=== PATIENT | male | born 1965 | race Caucasian/White ===

== ENCOUNTER → 2020-10-03 17:42 | Outpatient (CLI) | payer OTHER, SELFPAY | PROVIDERS: Visit Provider Family Medicine | DX: U07.1 COVID-19 (principal) | CPT/HCPCS: 87635; U0003 ==

== ENCOUNTER 2022-01-21 16:12 | Outpatient (CLI) | payer OTHER, SELFPAY ==
--- NOTE | 2022-01-21 16:17 | RAD_ITS ---
STUDY: XR Chest 2 Views 01/21/2022 4:21 PM REASON FOR EXAM: Male, 56 years old. CHEST PAIN LEG SWELLING COMPARISON: None TECHNIQUE: XR Chest 2 Views FINDINGS: There is no demonstrated pleural abnormality. Normal heart size. Normal mediastinum. Normal mal. Prominent appearing increased interstitial lung markings. Normal visualized pulmonary arteries. There is atherosclerotic calcification of the aortic arch with tortuosity. There are diffuse degenerative changes of the visualized thoracic spine. There is degenerative osteoarthritis of the bilateral shoulders. There is no demonstrated abnormality of the visualized soft tissue structures of the upper abdomen. RAD/Chest PA and Lateral IMPRESSION: There are no acute findings. Electronically Signed: Christopher Robledo MD at 19:34 EDT ,
[2022-01-21 17:58] LABS: Hemoglobin 13.9 g/dL (13.0-16.5); Mean Corp Hgb Conc 32.3 g/dL (32-36); Mean Corpuscular Hgb 29.9 pg (27.0-32.0); Mean Corpuscular Volume 92.5 fL (80-94); Mean Platelet Vol. 10.8 fl (6.2-12.0); Platelet Count 233 K/mm3 (150-450); RBC Distribution Width CV 14.2 % (11.6-14.6); RBC Distribution Width SD 48.2 fl (35.1-43.9); Red Blood Count 4.65 M/mm3 (4.6-6.2); White Blood Count 7.4 K/mm3 (4.4-11.0)
[2022-01-21 18:30] LABS: BNP,B-Type NATRIURETIC PEPTIDE 46.1 pg/mL (0-100)
[2022-01-21 18:32] LABS: ALB/GLOB Ratio 1.1 RATIO (0.9-2.4); AST(SGOT) 23 U/L (15-37); Alanine Aminotransfer ALT/SGPT 36 U/L (16-61); Albumin, Serum 3.8 g/dL (3.2-5.0); Alkaline Phosphatase 107 U/L (45-117); Anion Gap 5 (5-15); BUN 18 mg/dL (7-18); BUN/Creat Ratio 18.3 RATIO (10-20); Calcium,Total 8.9 mg/dL (8.5-10.1); Chloride 106 mmol/L (98-107); Cholesterol 169 mg/dL (200); Creatinine, Serum 0.98 mg/dL (0.70-1.30); EST Glomerular Filtration Rate 84 mL/min (>60); Est Glom Filt Rate - Afr Amer 102 mL/min (>60); Globulin 3.6 g/dL (2.2-4.2); Glucose 89 mg/dL (74-106); High Density Lipoprotein 47 mg/dL; Potassium 3.7 mmol/L (3.5-5.1); Protein, Total 7.4 g/dL (6.4-8.2); Sodium Level 138 mmol/L (136-145)
== END 2022-01-21 23:59 | disposition home or self-care (01) ==
LOC: MTLAB 16:15
PROVIDERS: PCP Family Medicine; Referring Provider Family Medicine; Visit Provider Family Medicine
DX: M79.89 Other specified soft tissue disorders (principal)
CPT/HCPCS: 36415; 71046; 80053; 82465; 83718; 83880; 85027

== ENCOUNTER 2022-02-13 15:30 | Outpatient (RCR) | payer OTHER, SELFPAY ==
--- NOTE | 2022-02-06 07:51 | HP.OTEVAL ---
Patient's Visit Information YENY SUAZO is a 56 year old M, referred to Occupational Therapy by Dr. Daryl Carroll MD, with a diagnosis of lymphedema left LE, PVD/Varicose veins bilateral. Date of Evaluation: 02/05/22 Occupational Therapist: Ivonne Xie, OTR/L, CHT - Subjective This 56 year old male was seen for OT eval with dx of left LE lymphedema- pt states he noticed the swelling possibly in 2020. pt states Dr. Carroll did put him on a water pill about two weeks ago- pt states his leg is better-. Pt states he does work at a [employer] work 8-9 hours a day- sitting most of the time. pt states he feels swelling is constant and does not change. pt states his is concerned and he really did not notice it until she said something. - Lymphedema (Circumferential Measure) Mid-foot: right 24cm left 24cm Ankle: right 25.5 cm left 27cm Lower calf: right 27 left 33 Largest calf: right 46cm left 48cm Below knee: right 39 left 40 cm Above knee: rigth 48 left 47 cm - Lower Limb Functional Index Lower Extremity Functional Score: 69 - Goals Demonstrate a 20% reduction in edema by d/c: Yes Demonstrate adequate knowledge of self-massage by 2nd week: Yes Demonstrate adequate knowledge skin care/prec by 2nd week: Yes Demonstrate adequate knowledge therapeutic exercises by d/c: Yes Select approp compression garment w/donning/care/wear by d/c: Yes Voice need to replace compression garment every 4-6mo by dc: Yes - Rehabilitation General Assessment: Pt demo with left LE edema and multiple varicose veins. Pt demo need for OT services to ed. pt on life long mtg. of lymphedema. This will include pts learning self manual lymph massage so he can perform 3-4x a day, lymph stim exercise to stimulator lymph fluid circulation. Ed. pt on compression garment use and skin care for pt to be successful with self management of lymphedema. Today therapist ed. pt on need of compression garment 20-30mmHg. Self lymph massage, lymph stim exercise and skin care. pt demo understanding and agree to POC. Rehabilitation Potential: Fair - Anticipated Interventions Education re assistive Equipment, Education re Diagnosis, Manual Lymph Drainage, Education re Life-long lymphedema Management, Education re Skin Care and Precautions, Education re Self Massage Techniques, Education re Correct Donning Tech,Care&Wearing Sched Comp Garments, Home Program - Visit Plan Frequency: 1-2x /Week Duration: 4 Weeks TEXT: Thank you for the opportunity to evaluate your patient. For Medicare and Medicare HMO plans, please review the plan of care and approve it. It will need to be FAXED BACK to us at [phone] for Medicare purposes. Please let me know if there are questions or concerns regarding this plan of care. Physician Signature: Date:
--- NOTE | 2022-07-22 13:30 | HP.OT.NRP ---
YENY SUAZO was seen in my office for initial evaluation on 02/05/22. The following Plan of Care was established for this patient: Initial Frequency: 1-2x /Week Initial Duration: 4 Weeks Anticipated Interventions: Education re assistive Equipment, Education re Diagnosis, Manual Lymph Drainage, Education re Life-long lymphedema Management, Education re Skin Care and Precautions, Education re Self Massage Techniques, Education re Correct Donning Tech,Care&Wearing Sched Comp Garments, Home Program This patient was last seen in our office 02/05/22. Pertinent comments regarding their Occupational therapy will appear below: pt was seen for 2 visits- he arrived to 2nd visit with compression socks and felt they were comfortable- pt demo understanding of HEP- pt has not scheduled further apts. due to time lapse in services pt d.c At this point I will be discontinuing this patient from occupational therapy. I would be happy to see this patient again in the future if found appropriate by the physician. Thank you! Ivonne Xie, OTR/L, CHT
== END 2022-02-13 19:00 | disposition home or self-care (01) ==
LOC: OT 15:30
PROVIDERS: PCP Family Medicine; Referring Provider Family Medicine; Visit Provider Family Medicine
DX: I89.0 Lymphedema, not elsewhere classified (principal); I83.93 Asymptomatic varicose veins of bilateral lower extremities; I73.9 Peripheral vascular disease, unspecified
CPT/HCPCS: 97110; 97166; 97530

== ENCOUNTER → 2022-05-01 | Outpatient (CLI) | payer OTHER, SELFPAY ==
[2022-05-01 17:55] LABS: PSA,Total - Annual Screen 7.29 ng/mL (0.00-4.00)
== END | disposition home or self-care (01) ==
LOC: MTLAB 16:23
PROVIDERS: PCP Family Medicine; Referring Provider Family Medicine; Visit Provider Family Medicine
DX: Z12.5 Encounter for screening for malignant neoplasm of prostate (principal)
CPT/HCPCS: 36415; 84153; G0103

== ENCOUNTER → 2022-06-17 | Outpatient (CLI) | payer OTHER, SELFPAY ==
[2022-06-17 14:48] LABS: PSA,Total- Diagnostic 8.32 ng/mL (0.0-4.0)
== END | disposition home or self-care (01) ==
LOC: LAB 13:53
PROVIDERS: PCP Family Medicine; Visit Provider Urology
DX: R97.20 Elevated prostate specific antigen [PSA] (principal)
CPT/HCPCS: 36415; 84153

== ENCOUNTER → 2022-06-26 | Outpatient (CLI) | payer OTHER, SELFPAY ==
--- NOTE | 2022-06-26 | IMM_PTH ---
PATIENT: YENY SUAZO LOC: [facility] U#:[id number] AGE/SX: 56/M ROOM: RE06/26/[address]: Dr. Ramírez Ndiaye MD : 1965 BED: DIS: 06/26/2022 SPEC #: [id number] RECD: 06/30/22 13:43 STATUS: JOAN REQ #: [id number] MIKE: 06/26/22 00:[address]: Ramírez Ndiaye DEPT: IMMUNOHISTOCHEMISTRY RECD BY: Lary Diallo ENTERED: 06/30/22 13:44 SP TYPE: IMMUNO OTHR DR: Dr. Isaac Birch MD Tissues: A - PROSTATE RIGHT D - PROSTATE LEFT Procedures: 34BE12 (add) P40 (add) 34BE12 (initial) PHYSICIAN & INSTITUTION [place] [phone] SPECIMEN INFORMATION: Tissue Source: A - Right prostate, apex, core biopsy, D - Left prostate, apex, core biopsy Clinical Info: Elevated PSA Specimen Number: [id number] A & D CPT code: 21407, 21492 x3 METHODOLOGY: Deparaffinized sections of prefer/formalin-fixed tissue or PAP/DQ stained slides are incubated with monoclonal/polyclonal antibodies/oligonucleotide probes. Localization is made via biotin free immunoperoxidase method. Appropriate controls are performed and reacted as expected. Results on target cell population are indicated in the following table: RESULTS: ANTIBODY / CLONE RESULT Block A P40 (BC28) negative (a few glands) * 34BE12 (34BE12) negative (a few glands) * Block D P40 (BC28) positive 34BE12 (34BE12) positive *?Positive in the area of high-grade prostatic intraepithelial neoplasia (HGPIN). These tests were developed and their performance characteristics determined by [facility]. They may not have been cleared or approved by the U.S. Food and Drug Administration. The FDA has determined that such clearance or approval is not necessary. The above immunohistochemical/dualISH markers are ordered and reviewed by the Pathologist. INTERPRETATION: A. Right prostate, apex, core biopsy: Focal atypical small acinar proliferation (AMILCAR). Focal high-grade prostatic intraepithelial neoplasia (HGPIN). D. Left prostate, apex, core biopsy: Focal high-grade prostatic intraepithelial neoplasia (HGPIN). SJ:sky 07/01/2022
--- NOTE | 2022-06-26 08:00 | PROSBIL_PTH ---
PATIENT: YENY SUAZO LOC: [facility] U#:[id number] AGE/SX: 56/M ROOM: RE06/26/[address]: Dr. Ramírez Ndiaye MD : 1965 BED: DIS: 06/26/2022 SPEC #: [id number] RECD: 06/26/22 16:27 STATUS: JOAN REJose #: [id number] MIKE: 06/26/22 08:[address]: Ramírez Ndiaye DEPT: SURGICAL PATHOLOGY RECD BY: Tova Ortega ENTERED: 06/27/22 08:12 SP TYPE: PROST BX SHY DR: Dr. Isaac Birch MD Tissues: A - PROSTATE RIGHT B - PROSTATE RIGHT C - PROSTATE RIGHT D - PROSTATE LEFT E - PROSTATE LEFT F - PROSTATE LEFT Procedures: PROSTATE BX HEADER OPERATION: Prostate biopsy PRE-OP DIAGNOSIS: Elevated PSA R97.20 TISSUE SUBMITTED: A - Right apex, B - Right mid, C - Right base, D - Left apex, E - Left mid, F - Left base MICROSCOPIC DIAGNOSIS A. Right prostate, apex, core biopsy: Focal high-grade prostatic intraepithelial neoplasia (HGPIN). Focal atypical small acinar proliferation (AMILCAR). See comment. B. Right prostate, mid, core biopsy: Prostatic tissue, negative for malignancy. Focal mild chronic inflammation. C. Right prostate, base, core biopsy: Prostatic tissue, negative for malignancy. D. Left prostate, apex, core biopsy: Focal high-grade prostatic intraepithelial neoplasia (HGPIN). See comment. E. Left prostate, mid, core biopsy: Prostatic adenocarcinoma. [place] grade: 3+3=6 Number of cores involved: 1/2 Proportion of tissue involved: ~10% Perineural invasion: Not identified. Greatest tumor length: 0.5 cm, discontinuous Focal high-grade prostatic intraepithelial neoplasia (HGPIN). F. Left prostate, base, core biopsy: Prostatic adenocarcinoma. [place] grade: 3+3=6 Number of cores involved: 1/2 Proportion of tissue involved: ~25% Perineural invasion: Present, focal. Greatest tumor length: 0.5 cm. Focal high-grade prostatic intraepithelial neoplasia (HGPIN). SJ:sky 06/30/2022 COMMENT A & D. Immunohistochemistry ([id number]) supports the above diagnosis. Case has been reviewed in consultation with Dr. Davis who concurs with the above diagnosis. IDC:AM MICROSCOPIC DESCRIPTION Slides are reviewed. GROSS DESCRIPTION A - Received is one container designated prostate, right apex. The specimen consists of two elongated fragments of light sung-white soft tissue each measuring 1 cm in length and 0.1 cm in diameter. The specimen is totally submitted in one cassette. B - Received is one container designated prostate, right mid. The specimen consists of two elongated fragments of light sung-white soft tissue measuring 1 and 1.5 cm in length and 0.1 cm in diameter. The specimen is totally submitted in one cassette. C - Received is one container designated prostate, right base. The specimen consists of two elongated fragments of light sung-white soft tissue measuring 0.8 and 1.5 cm in length and 0.1 cm in diameter. The specimen is totally submitted in one cassette. D - Received is one container designated prostate, left apex. The specimen consists of two elongated fragments of light sung-white soft tissue measuring 0.5 and 0.1 cm in length and 0.1 cm in diameter. The specimen is totally submitted in one cassette. E - Received is one container designated prostate, left mid. The specimen consists of two elongated fragments of light sung-white soft tissue each measuring 1.8 cm in length and 0.1 cm in diameter. The specimen is totally submitted in one cassette. F - Received is one container designated prostate, left base. The specimen consists of two elongated fragments of light sung-white soft tissue each measuring 1.5 cm in length and 0.1 cm in diameter. The specimen is totally submitted in one cassette. / SJ:rg 06/27/2022 TC:0 CPT: 62324 x6 ADDENDUM ADDENDUM ADDENDUM ADDENDUM ADDENDUM ADDENDUM ADDENDUM ADDENDUM 08/18/2022 09:57 ADDENDUM 08/18/2022 09:57 ADDENDUM 08/18/2022 09:57 ADDENDUM 08/18/2022 09:57 ADDENDUM 08/18/2022 09:57 An order for Oncotype testing was received from Dr. Ndiaye. This necessitated case review, block and slide selection by pathologist at [facility]. Genomic Prostate Score = 46 Results of the complete Oncotype testing ([employer] report) are viewable in EMR under: Reports - Pathology - Lab Pathology Report, Scanned.
== END | disposition home or self-care (01) ==
LOC: LABSPEC 16:29
PROVIDERS: PCP Family Medicine; Visit Provider Urology
DX: N42.32 Atypical small acinar proliferation of prostate (principal); N42.31 Prostatic intraepithelial neoplasia; R97.20 Elevated prostate specific antigen [PSA]
CPT/HCPCS: 88305; 88341; 88342; G0416

== ENCOUNTER → 2022-08-26 | Outpatient (CLI) | payer OTHER, SELFPAY ==
--- NOTE | 2022-08-26 16:00 | MRI_ITS ---
STUDY: MR PELVIS WITH T WITHOUT CONTRAST REASON FOR EXAM: Male, 56 years old. Malignant neoplasm prostate TECHNIQUE: Standardized fat and water weighted pulse sequences were obtained in all 3 orthogonal planes for prostate protocol left 3 plane small field of view T2, diffusion with ADC, and postcontrast imaging. Whole pelvis postcontrast T1 and fat-saturated T2 sequences were obtained, pre-and post contrast administration. IV 22mL CLARISCAN was administered for the contrast portion of the examination. COMPARISON: None. FINDINGS: Prostate: 5.3 x 3.6 x 3.7 cm (36ml) Peripheral zone: Diffuse heterogeneous T2 signal within the bilateral peripheral zone. No restricted diffusion. Focal T1 hyperintensity prior to and following IV contrast along the lateral right prostatic base suggestive of hemorrhage from prior biopsy. Additional small foci of hyperintense T1 signal within the anterior right and left prosthetic body. No suspicious enhancement. Transition zone: Heterogeneous internal signal without discrete T2 lesion, diffusion restriction or abnormal enhancement. No capsular bulge. Rectoprostatic angles are clear. Unremarkable seminal vesicles. Unremarkable bladder. No pelvic adenopathy in the imaged pelvis. Unremarkable osseous structures. Imaged portions of bowel are unremarkable. MRI/Pelvis W/WO Contrast IMPRESSION: Right posterior thyroid base T1 hyperintense focus most consistent with post biopsy change. Additional smaller anterior lateral peripheral zone T1 hyperintensities may also represent the site of biopsy hemorrhage. No other acute prostatic finding. No evidence of extraprostatic spread. Overall PIRADS 3 MRI pelvis. Please note this does not exclude biopsy-proven malignancy. Postbiopsy changes may obscure mass. Large prostate. Electronically Signed: John Lassiter MD at 6:27 EDT ,
== END | disposition home or self-care (01) ==
PROVIDERS: PCP Family Medicine; Visit Provider Urology
DX: C61 Malignant neoplasm of prostate (principal)
CPT/HCPCS: 72197; A9575

== ENCOUNTER 2022-09-17 06:39 | Day surgery (SDC) | payer OTHER, SELFPAY ==
[2022-09-17] VITALS (8 sets, daily range): BP systolic 94–133; BP diastolic 62–84; PULSE 62–89; RESP 16; TEMP 36.2–36.8; O2SAT 92–100; BMI 32.5
--- NOTE | 2022-09-17 06:58 | HP.PCM_ITS ---
HPI - General HPI Narrative YENY SUAZO, is a 56 M who presents for screening colonoscopy. Patient is never had previous colonoscopy. Patient denies any family history of colon cancer. Patient has bowel movements daily denies any blood. Patient denies any nausea/vomiting/chronic abdominal pain. [facility] Medical History (Updated 09/15/22 @ 12:39 by Samantha López) BiPAP (biphasic positive airway pressure) dependence Cancer Cataract History of edema Lymphedema, not elsewhere classified Non-smoker Prostate disease Varicose veins of legs Venous insufficiency (chronic) (peripheral) Home Medications NK 08/01/22 [History Last Taken Unknown] Allergy/AdvReac Type Severity Reaction Status Date / Time No Known Allergies Allergy Verified 09/17/22 07:08 Surgical History (Updated 08/01/22 @ 10:34 by Shirley Collado) History of bilateral cataract extraction Social History (Updated 08/01/22 @ 10:36 by Shirley Collado) household members: spouse current occupational status: employed current occupation: [employer] Smoking Status: Never smoker alcohol intake: never substance use type: does not use Past Medical/Surgical History Planned Operation Planned Operative Procedure/s: COLONOSCOPY Previous Hospitalizations/Surgeries HX Hospitalizations: No Any Problems With Anesthesia: No You/Your Family Experience Fever (Hyperthermia) With Anes: No Cholinesterase deficiency: No Cardiovascular Hx Hypertension: No Respiratory Hx Sleep Apnea: No Hx Respiratory Tract Infection/Cold (presently): No Do You Snore Loudly (louder than talking or can be heard): Yes Do You Often Feel Tired/ Fatigued/ Sleepy [place]ring Daytime?: No Has Anyone Observed You Stop Breathing During Sleep?: No Result (for STOP score): Negative Smoking Status: Never smoker Neurological Does patient have nerve stimulator: No Allergies No Known Allergies Allergy (Verified 09/17/22 07:08) Discharge Is Pt Admitted From a Long-Term, or a [place] [facility]: No Who Could Help: After D/C, Where Do you Plan to Go: Return Home Physical Exam Const alert, oriented x3 and no apparent distress HEENT normocephalic and head/scalp atraumatic Resp normal respiratory effort Cardio regular rate GI soft to palpation and non-tender; Negative for non-distended Palpation: Negative for guarding Extremity no clubbing, cyanosis or edema Neuro CN's II-XII intact bilaterally Psych mental status grossly normal Assessment & Plan Assessment/Plan (1) Encounter for screening for malignant neoplasm of colon: Surgery Risks - Colonoscopy Risks Include but are not Limited To: Risks include but are not limited to: Bleeding, perforation requiring further surgery, inability to complete colonoscopy requiring barium enema.
[2022-09-17] MEDS: Lactated Ringers 1,000 ML 15 ML IV (07:12)
--- NOTE | 2022-09-17 08:26 | OP.COLON_ITS ---
Patient Name: Xavi Lainez Procedure Date: 09/17/2022 7:51 AM Date of : 1965 Age: 56 Procedure: Colonoscopy Indications: Screening for colorectal malignant neoplasm Providers: Karina Concepcion MD Referring MD: Isaac Birch Medicines: Monitored Anesthesia Care Patient Profile: This is a 56 year old male. Last Colonoscopy: none. The patient's first colonoscopy is today. Complications: No immediate complications. Procedure: Pre-Anesthesia Assessment: - Prior to the procedure, a History and Physical was performed, and patient medications and allergies were reviewed. The patient's tolerance of previous anesthesia was also reviewed. The risks and benefits of the procedure and the sedation options and risks were discussed with the patient. All questions were answered, and informed consent was obtained. Prior Anticoagulants: The patient has taken no previous anticoagulant or antiplatelet agents. ASA Grade Assessment: Per anesthesia. After reviewing the risks and benefits, the patient was deemed in satisfactory condition to undergo the procedure. After I obtained informed consent, the scope was passed under direct vision. Throughout the procedure, the patient's blood pressure, pulse, and oxygen saturations were monitored continuously. The colonoscope was introduced through the anus and advanced to the terminal ileum. The colonoscopy was performed without difficulty. The patient tolerated the procedure well. The quality of the bowel preparation was good. Scope In: 8:00:24 AM Scope Withdrawal Time 0 hours 9 minutes 48 seconds Scope Out: 8:19:31 AM Total Procedure Duration Time 0 hours 19 minutes 7 seconds Findings: The perianal and digital rectal examinations were normal. The entire examined colon appeared normal on direct and retroflexion views. The terminal ileum appeared normal. Impression: - The entire examined colon is normal on direct and retroflexion views. - The examined portion of the ileum was normal. - No specimens collected. Recommendation: - Discharge patient to home. - Resume previous diet. - Continue present medications. - Repeat colonoscopy in 10 years for screening purposes. Procedure Code(s): --- Professional --- G0121, PT, Colorectal cancer screening; colonoscopy on individual not meeting criteria for high risk Diagnosis Code(s): --- Professional --- Z12.11, Encounter for screening for malignant neoplasm of colon CPT copyright 2017 [employer]. All rights reserved. The codes documented in this report are preliminary and upon senior software development manager review may be revised to meet current compliance requirements. MD Karina Milan MD 09/17/2022 8:25:41 AM This report has been signed electronically. Number of Addenda: 0 Note Initiated On: 09/17/2022 7:51 AM
--- NOTE | 2022-09-17 08:27 | OP.CCLET_ITS ---
09/17/2022 Isaac Birch [address] [place] [address] Re : Colonoscopy procedure for Xavi Lainez Dear Dr. Birch This procedure was performed on Saturday, September 17, 2022. My impressions and recommendations are as follows: Impressions : - The entire examined colon is normal on direct and retroflexion views. - The examined portion of the ileum was normal. - No specimens collected. Recommendations : - Discharge patient to home. - Resume previous diet. - Continue present medications. - Repeat colonoscopy in 10 years for screening purposes. My findings are described in the full procedure note, which is enclosed. If I can be of further assistance, please feel free to contact me at Doctor phone number(s): , Work: . Sincerely, MD Karina Milan MD 09/17/2022 8:25:41 AM This report has been signed electronically.
== END 2022-09-17 09:10 | disposition home or self-care (01) ==
LOC: EN 06:42 → AC 06:43
PROVIDERS: PCP Family Medicine; Referring Provider Family Medicine; Visit Provider Surgery
PROC: 0DJD8ZZ Inspection of Lower Intestinal Tract, Via Natural or Artificial Opening Endoscopic (ICD-10-PCS; CPT 45378; principal; 2022-09-17 07:55)
DX: Z12.11 Encounter for screening for malignant neoplasm of colon (principal); I73.9 Peripheral vascular disease, unspecified
CPT/HCPCS: 45378; J7120; J2405

== ENCOUNTER → 2022-10-20 | Outpatient (CLI) | payer OTHER, SELFPAY ==
[2022-10-20 16:30] LABS: PSA,Total- Diagnostic 6.67 ng/mL (0.0-4.0)
== END | disposition home or self-care (01) ==
PROVIDERS: PCP Family Medicine; Visit Provider Urology
DX: C61 Malignant neoplasm of prostate (principal)
CPT/HCPCS: 36415; 84153

== ENCOUNTER → 2023-04-17 | Outpatient (CLI) | payer OTHER, SELFPAY | END | disposition home or self-care (01) | LOC: LAB 12:37 | PROVIDERS: PCP Family Medicine; Referring Provider Registered Nurse; Visit Provider Registered Nurse | DX: C61 Malignant neoplasm of prostate (principal) | CPT/HCPCS: 36415; 84153 ==

== ENCOUNTER → 2023-10-19 | Outpatient (CLI) | payer OTHER, SELFPAY ==
[2023-10-19 17:41] LABS: PSA,Total- Diagnostic 6.94 ng/mL (0.0-4.0)
== END | disposition home or self-care (01) ==
PROVIDERS: PCP Family Medicine; Referring Provider Urology; Visit Provider Urology
DX: C61 Malignant neoplasm of prostate (principal)
CPT/HCPCS: 36415; 84153

== ENCOUNTER → 2024-02-25 | Outpatient (CLI) | payer OTHER, SELFPAY ==
[2024-02-25 18:08] LABS: Absolute Neutrophil Count 3.8 X10^3/uL (2.0-7.7); Basophil# 0.06 X10^3/uL; Basophil% 0.8 % (0-1); Eosinophils% 5.5 % (0-5); Hematocrit 44.3 % (40-54); Hemoglobin 14.7 g/dL (13.0-16.5); Lymphocyte % 31.8 % (19-41); Mean Corp Hgb Conc 33.2 g/dL (32-36); Mean Corpuscular Hgb 30.3 pg (27.0-32.0); Mean Corpuscular Volume 91.3 fL (80-94); Mean Platelet Vol. 10.8 fl (6.2-12.0); Monocyte# 0.64 X10^3/uL; Monocyte% 8.8 % (0-10); NRBC Flagged by Analyzer 0 % (0-5); Neutrophil # 3.82 X10^3/uL (2.7-7.7); Neutrophil % 52.8 % (47-70); Platelet Count 229 K/mm3 (150-450); RBC Distribution Width CV 14.2 % (11.6-14.6); RBC Distribution Width SD 47.9 fl (35.1-43.9); Red Blood Count 4.85 M/mm3 (4.6-6.2); White Blood Count 7.2 K/mm3 (4.4-11.0)
[2024-02-25 18:33] LABS: ALB/GLOB Ratio 0.9 RATIO (0.9-2.4); AST(SGOT) 26 U/L (15-37); Alanine Aminotransfer ALT/SGPT 54 U/L (16-61); Albumin, Serum 3.6 g/dL (3.2-5.0); Alkaline Phosphatase 115 U/L (45-117); Anion Gap 5 (5-15); BUN 22 mg/dL (7-18); BUN/Creat Ratio 24.6 RATIO (10-20); Chloride 110 mmol/L (98-107); Cholesterol 196 mg/dL (200); EST Glomerular Filtration Rate 93 mL/min (>60); Est Glom Filt Rate - Afr Amer 113 mL/min (>60); Globulin 3.8 g/dL (2.2-4.2); Glucose 106 mg/dL (74-106); High Density Lipoprotein 37 mg/dL; Potassium 3.9 mmol/L (3.5-5.1); Protein, Total 7.4 g/dL (6.4-8.2); Sodium Level 139 mmol/L (136-145); T4 Free Direct 1.07 ng/dL (0.76-1.46); Thyroid Stim Hormone (TSH) 2.24 uIU/mL (0.358-3.74); Triglycerides 182 mg/dL; Very Low Density Lipoprotein 36 mg/dL (5-40)
[2024-02-26 10:17] LABS: Hemoglobin A1c 5.9 % (3.8-5.6)
[2024-02-29 18:07] LABS: Anti-Thyroglobulin AB < 1.0 IU/mL (0.0-0.9); Thyroglobulin, Serum Qt. 21.2 ng/mL (1.4-29.2); Thyroid Peroxidase AB 13 IU/mL (0-34)
== END | disposition home or self-care (01) ==
LOC: MTLAB 16:13
PROVIDERS: PCP Family Medicine; Referring Provider Family Medicine; Visit Provider Family Medicine
DX: Z00.00 Encounter for general adult medical examination without abnormal findings (principal); E04.1 Nontoxic single thyroid nodule
CPT/HCPCS: 36415; 80053; 80061; 83036; 84432; 84439; 84443; 85025; 86376; 86800

== ENCOUNTER → 2024-03-03 | Outpatient (CLI) | payer OTHER, SELFPAY ==
--- NOTE | 2024-03-03 11:24 | US_ITS ---
EXAM: US SOFT TISSUES HEAD AND NECK, THYROID CLINICAL INDICATION: nodule TECHNIQUE: Greyscale and color doppler imaging was performed of the thyroid gland. COMPARISON: No relevant prior studies available. FINDINGS: LEFT THYROID LOBE: The left thyroid lobe measures 3.7 x 1.5 x 1.0 cm. Homogeneous echotexture with normal vascularity. No thyroid nodules are present. RIGHT THYROID LOBE: The right thyroid lobe measures 4.3 x 1.4 x 1.3 cm. Homogeneous echotexture with normal vascularity. No thyroid nodules are present. ISTHMUS: The thyroid isthmus measures 0.18 cm. No thyroid nodules are present. US/Thyroid IMPRESSION: No thyroid nodules are identified. The thyroid is normal in size. TI-RADS category: TR1. Electronically Signed: Arnie Sheridan DO at 19:37 EDT ,
== END | disposition home or self-care (01) ==
PROVIDERS: PCP Family Medicine; Referring Provider Family Medicine; Visit Provider Family Medicine
DX: E04.1 Nontoxic single thyroid nodule (principal)
CPT/HCPCS: 76536

== ENCOUNTER → 2024-04-21 | Outpatient (CLI) | payer OTHER, SELFPAY ==
[2024-04-21 10:44] LABS: PSA,Total- Diagnostic 6.88 ng/mL (0.0-4.0)
== END | disposition home or self-care (01) ==
LOC: LAB 09:11
PROVIDERS: PCP Family Medicine; Referring Provider Nurse Practitioner; Visit Provider Nurse Practitioner
DX: C61 Malignant neoplasm of prostate (principal)
CPT/HCPCS: 36415; 84153

== ENCOUNTER → 2024-07-26 | Outpatient (CLI) | payer OTHER, SELFPAY ==
--- NOTE | 2024-07-26 10:32 | RAD_ITS ---
STUDY: X-RAY - LEFT KNEE REASON FOR EXAM: Male, 58 years old. PAIN TECHNIQUE: 4 views of the left knee. COMPARISON: None. FINDINGS: Normal visualized distal femur. Normal visualized proximal tibia and fibula. Normal proximal tibiofibular articulation. There is no demonstrated fracture. Normal medial femorotibial compartment. Normal lateral femorotibial compartment. Normal patellofemoral articulation. There is a tiny enthesopathic spur of the superior pole of the patella at the distal insertion of the quadriceps tendon. There is no significant joint effusion. The soft tissue structures are unremarkable. RAD/Knee 4 or More Views IMPRESSION: Tiny enthesopathic spur of the superior pole of the patella at the distal insertion of the quadriceps tendon. Electronically Signed: Rogelio Church MD at 15:30 EDT ,
--- NOTE | 2024-07-26 10:34 | RAD_ITS ---
STUDY: X-RAY - RIGHT KNEE REASON FOR EXAM: Male, 58 years old. Knee pain. TECHNIQUE: 4 views of the right knee. COMPARISON: None. FINDINGS: Normal visualized distal femur. Normal visualized proximal tibia and fibula. Normal proximal tibiofibular articulation. There is no demonstrated fracture. Normal medial femorotibial compartment. Normal lateral femorotibial compartment. Normal patellofemoral articulation. There is a small enthesopathic spur of the superior pole of the patella at the distal insertion of the quadriceps tendon. There is a tiny joint effusion. The soft tissue structures are unremarkable. RAD/Knee 4 or More Views IMPRESSION: Small enthesopathic spur of the superior pole of the patella at the distal insertion of the quadriceps tendon. Tiny joint effusion. Electronically Signed: Rogelio Church MD at 15:29 EDT ,
== END | disposition home or self-care (01) ==
PROVIDERS: PCP Family Medicine; Referring Provider Family Medicine; Visit Provider Family Medicine
DX: M25.569 Pain in unspecified knee (principal)
CPT/HCPCS: 73564

== ENCOUNTER 2024-09-20 07:00 | Outpatient (RCR) | payer OTHER, SELFPAY ==
--- NOTE | 2024-08-04 12:37 | HP.PTEVAL_ITS ---
Patient's Visit Information Visit Information Visit Information: YENY SUAZO is a 58 year old M referred to Physical Therapy by Dr. Isaac Birch MD with a diagnosis of RIGHT KNEE PAIN ,PATELLOFEMORAL PAIN/CREPITUS. Date of Evaluation: 08/04/24 Physical Therapist: Jacob Castillo, PT, Cert MDT, OCS Visit Plan Frequency: 2x /Week Duration: 4 Weeks Plan: PT INTERVENTIONS ROM/FLEXABILITY KNEE QUADS/HAMS ,STRENGTHENING QUADS/HAMS/HIP AND FUNCTIONAL STRENGTHENING Subjective Subjective: This 58 y/o male presents to physical therapy with right knee pain. Patient developed knee pain since May 2024 with insidious onset no injury. Patient developed pain more sitting to get up . Patient pain described medial knee occasionally knee pain. Seen DR x-rays showed DDD. Prescribed osteoarthritis. Aggravating elevating from chair ,stairs . Alleviating with rest. Denies paresthesia/tingling. No trauma or injury . Patient sleeping good. Patient pain affects QOL and function. Patient goals to decrease pain. VOCATION: Accounting SOCIAL: Pain Right Knee: Pain Intensity (Out of 10): 2 Pain Intensity Range: 10 Objective Objective: POSTURE: mild forward posture ,patella slightly lateral tilted GAIT: reciprocal pattern PALPATION: unremarkable NEURO: intact EDEMA: absent AROM: 0-125 degrees right ,left 0-135 degrees knee flexion MMT: quads/hams/hip flexion/abduction 4/5 ,ankle 5/5 Special Tests R Knee Martin - Meniscus: Negative R Knee Posterior Drawer - PCL: Negative R Knee Valgus - MCL: Negative R Knee Varus - LCL: Negative R Knee Patellar Apprehension - PFS: Negative R Knee Patellar Grind - PFS: Negative Balance/Special Test Scores Lower Extremity Functional Score: 51 Goals Goal 1:: Patient to be I with HEP knee Goal Time Frame: 4-6 Weeks Goal 2:: Patient to improve AROM knee flexion by 5-10 degrees to improve stairs and elevation from chair Goal Time Frame: 4-6 Weeks Goal 3:: Patient to demonstrate 60% improvement with less pain improve function especially elevation from chair. Goal Time Frame: 4-6 Weeks Goal 4:: Patient to improve LFES score by 5 points to improve function Goal Time Frame: 4-6 Weeks Rehabilitation Potential Physical Therapy Diagnosis: Patient has right knee pain with patellofemoral pain with decreased ROM and functional activities thus benefit from skilled PT Rehabilitation Potential: Good Anticipated Interventions Patient/Client Instruction: Educate patient on: Condition and Plan of Care For the Purpose of:: To increase ROM, To improve muscle performance and motor function, To improve ability to perform ADL's, To increase tolerance to activity/condition/position, To improve ability of physical actions for home/community/work/leisure, To improve health of tissue, To decrease soft tissue restriction, To increase flexibility/ROM and To improve tolerance to ADL's Therapeutic Exercise to Include: Strength training, Power training, Endurance training, Flexibilty training and Active ROM Comment: QUADS/HAMS/HIP For the Purpose of:: To decrease pain, To increase ROM, To improve muscle performance and motor function, To increase tolerance to activity/condition/p osition, To improve ability of physical actions for home/community/work/leisure, To improve health of tissue, To decrease soft tissue restriction and To increase flexibility/ROM Text: Thank you for the opportunity to evaluate your patient. For Medicare and Medicare HMO plans, please review the plan of care and approve it. It will need to be FAXED BACK to us at [phone] for Medicare purposes. For Medicare only, by signing this I certify the plan of care. Please let me know if there are questions or concerns regarding this plan of care. Physician Signature: Date:
--- NOTE | 2024-09-20 08:17 | HP.PTDCSUM ---
Discharge Summary D/C summary: It has been my pleasure to treat YENY SUAZO referred by Dr. Isaac Birch MD, with the diagnosis of RIGHT KNEE PAIN ,PATELLOFEMORAL PAIN/CREPITUS for a total of 9 visit(s). Discharge Date: 09/20/24 Please see the following information for a summary of their discharge status. Subjective Subjective: Doing well Pain Right Knee: Pain Intensity (Out of 10): 0 Overall Improvement % Improvement: 100 Objective Objective/Function: Objective: POSTURE: mild forward posture ,patella slightly lateral tilted GAIT: reciprocal pattern PALPATION: unremarkable NEURO: intact EDEMA: absent AROM: 0-130 degrees right ,left 0-135 degrees knee flexion MMT: quads/hams/hip flexion/abduction 4/5 ,ankle 5/5 Goals Goal 1:: Patient to be I with HEP knee Goal Progress: Goal Met Goal 2:: Patient to improve AROM knee flexion by 5-10 degrees to improve stairs and elevation from chair Goal Progress: Goal Met Goal 3:: Patient to demonstrate 60% improvement with less pain improve function especially elevation from chair. Goal Progress: Goal Met Goal 4:: Patient to improve LFES score by 5 points to improve function Goal Progress: Goal Met Plan Plan: D/C D/C Information Discharge Comments: HEP d/c sentence: If there are questions or concerns regarding this patient's physical therapy, please feel free to call me at [phone]. Thank you for the referral of this patient. Sincerely, Jacob Castillo PT, Cert MDT, OCS Balance/Gait/Functional tests Balance/Special Test Scores Lower Extremity Functional Score: 80 Improvement % Improvement: 100
== END 2024-09-20 09:28 | disposition home or self-care (01) ==
LOC: PT 07:00
PROVIDERS: PCP Family Medicine; Referring Provider Family Medicine; Visit Provider Family Medicine
DX: M25.561 Pain in right knee (principal); M22.2X1 Patellofemoral disorders, right knee
CPT/HCPCS: 97110; 97162; 97530

== ENCOUNTER → 2024-10-21 | Outpatient (CLI) | payer OTHER, SELFPAY ==
[2024-10-21 13:45] LABS: PSA,Total- Diagnostic 8.44 ng/mL (0.0-4.0)
== END | disposition home or self-care (01) ==
LOC: LAB 13:02
PROVIDERS: PCP Family Medicine; Referring Provider Nurse Practitioner; Visit Provider Nurse Practitioner
DX: C61 Malignant neoplasm of prostate (principal)
CPT/HCPCS: 36415; 84153

== ENCOUNTER → 2024-11-28 | Outpatient (CLI) | payer OTHER, SELFPAY ==
--- NOTE | 2024-11-28 13:23 | MRI_ITS ---
EXAMINATION: MR Prostate WO/W Contrast COMPARISON: 08/26/2022 CLINICAL HISTORY: 58-year-old male with elevated PSA Most recent PSA = 8.44 ng/ml; PSA date = 10/2024 TECHNIQUE: Standard prostate MR protocol was used before and after administration of 22 cc of IV Clariscan. FINDINGS: Prostate volume: 57 cc PSA density: 0.15 ng/ml2 Length of membranous urethra: 17 mm Post-biopsy hemorrhage: None Multiparametric MR evaluation: Heterogeneous appearance of the central gland is consistent with benign prostatic hyperplasia. No suspicious T2 hypointense or diffusion restricting lesion. Capsular margin and neurovascular bundle: Normal Seminal vesicles: Normal Lymph nodes: No lymphadenopathy in the field of view. Bones: No suspicious lesions in the field of view. MRI/Pelvis W/WO Contrast IMPRESSION: Limited examination due to motion artifact on T2 axial small FOV sequence. Despite limitations: PI-RADS 2: Benign prostatic hyperplasia. No suspicious T2 hypointense or diffusion restricting lesion. Electronically Signed: Rodriguez Giles MD at 10:41 EST ,
== END | disposition home or self-care (01) ==
LOC: MRI 13:19
PROVIDERS: PCP Family Medicine; Referring Provider Urology; Visit Provider Urology
DX: C61 Malignant neoplasm of prostate (principal); R97.20 Elevated prostate specific antigen [PSA]
CPT/HCPCS: 72197; A9575

== ENCOUNTER → 2025-02-28 | Outpatient (CLI) | payer OTHER, SELFPAY ==
[2025-02-28 18:24] LABS: Absolute Lymphocyte Count 2.57 X10^3/uL (0.83-4.51); Basophil# 0.05 X10^3/uL; Basophil% 0.6 % (0-1); Eosinophil# 0.23 X10^3/uL; Eosinophils% 2.6 % (0-5); Hematocrit 44.7 % (40-54); Hemoglobin 15.1 g/dL (13.0-16.5); Lymphocyte # 2.57 X10^3/ul (0.83-4.51); Lymphocyte % 29.6 % (19-41); Mean Corp Hgb Conc 33.8 g/dL (32-36); Mean Corpuscular Hgb 30.4 pg (27.0-32.0); Mean Corpuscular Volume 89.9 fL (80-94); Mean Platelet Vol. 10.8 fl (6.2-12.0); Monocyte# 0.77 X10^3/uL; Monocyte% 8.9 % (0-10); NRBC Flagged by Analyzer 0 % (0-5); Neutrophil # 5.03 X10^3/uL (2.7-7.7); Platelet Count 246 K/mm3 (150-450); RBC Distribution Width CV 14.1 % (11.6-14.6); RBC Distribution Width SD 46.3 fl (35.1-43.9); Red Blood Count 4.97 M/mm3 (4.6-6.2); White Blood Count 8.7 K/mm3 (4.4-11.0)
[2025-02-28 18:35] LABS: Hemoglobin A1c 6.2 % (<=5.6)
[2025-02-28 18:39] LABS: ALB/GLOB Ratio 1.3 RATIO (0.9-2.4); AST(SGOT) 27 U/L (<=37); Alanine Aminotransfer ALT/SGPT 37 U/L (<=46); Albumin, Serum 4.1 g/dL (3.5-5.0); Alkaline Phosphatase 125 U/L (40-129); Anion Gap 12 (5-15); BUN 16 mg/dL (4-19); BUN/Creat Ratio 16.1 RATIO (10-20); Calcium,Total 9.4 mg/dL (7.6-11.0); Carbon Dioxide 21.3 mmol/L (21.0-32.0); Chloride 105 mmol/L (98-108); Creatinine, Serum 1.02 mg/dL (0.70-1.20); EST Glomerular Filtration Rate 86 (>60); Globulin 3.1 g/dL (2.2-4.2); Glucose 104 mg/dL (70-99); Protein, Total 7.2 g/dL (5.9-8.4); Sodium Level 138 mmol/L (133-145); Total Bilirubin 0.32 mg/dL (0.00-1.30)
== END | disposition home or self-care (01) ==
LOC: MFPLAB 16:55
PROVIDERS: PCP Family Medicine; Referring Provider Family Medicine; Visit Provider Family Medicine
DX: R73.02 Impaired glucose tolerance (oral) (principal)
CPT/HCPCS: 36415; 80053; 83036; 85025

== ENCOUNTER → 2025-06-12 | Outpatient (CLI) | payer OTHER, SELFPAY ==
--- OUTSIDE RECORDS SUMMARY | 2025-06-12 08:52 | XMS RPT_ITS | CCD ---
Author Organization [facility] Care Team Providers Care Gang Rider Name Role Phone Dr. Isaac Birch Primary Care Provider [phone] Shirley Collado Attending Provider Unavailable Dr. Isaac Birch Primary Care Provider Shirley Collado Attending Provider Unavailable Dr. Isaac Birch Referring Provider Dr. Karina Concepcion Attending Provider Dr. Karina Concepcion Other Provider Queta GONZALEZ, Dr. Isaac Bingham Primary Care Provider Zelda GONZALEZ, Dr. Ramírez Hernandez Attending Provider Zelda GONZALEZ, Dr. Ramírez Hernandez Referring Provider Queta GONZALEZ, Dr. Isaac Bingham Attending Provider Queta GONZALEZ, Dr. Isaac Bingham Referring Provider Isaac Birch Referring Unavailable Isaac Birch Attending Unavailable Isaac Birch Primary Care Unavailable Isaac Birch Referring Unavailable Isaac Birch Attending Unavailable Isaac Birch Primary Care Unavailable [place] Referring Unavailable [place] Attending Unavailable Isaac Birch Primary Care Unavailable Isaac Birch Referring Unavailable Isaac Birch Attending Unavailable Isaac Birch Primary Care Unavailable Ramírez Ndiaye Referring Unavailable Ramírez Ndiaye Attending Unavailable Isaac Birch Primary Care Unavailable Isaac Birch Primary Care Unavailable [place] Referring Unavailable [place] Attending Unavailable Problems Active Problems Problem Classification Problem Date Documented Da te Episodic/Chronic Cancer of prostate (2 sources) Malignant neoplasm of prostate; Translations: [Malignant neoplasm of prostate] Onset: 12-22-2024 Chronic Other screening for suspected conditions (not mental disorders or infectious disease) (10 sources) Patient encounter status; Translations: [Encounter for screening for malignant neoplasm of colon] Episodic Past or Other Problems Problem Classification Problem Date Documented Da te Episodic/Chronic Diabetes mellitus without complication (1 source) Impaired glucose tolerance (oral); Translations: [Impaired glucose tolerance (oral)] Onset: 03-03-2025 Episodic Other non-traumatic joint disorders (1 source) Pain in unspecified knee; Translations: [Pain in unspecified knee] Onset: 08-17-2024 Episodic Results Test Name Value Interpretation Reference Range Facility Absolute neutrophil countOrd ered By: Isaac Birch on 02-28-2025 Neutrophils (Bld) [#/Vol] 5.0 10*3/uL 2.0-7.7 [facility] Anion gap in Serum or Plasma Ordered By: Isaac Birch on 02-28-2025 Anion gap [Moles/Vol] 12 mmol/L 5- [facility] BUN/creatinine ratioOrdered By: Isaac Birch on 02-28-2025 Urea nitrogen/Creatinine [Mass ratio] 16.1 mg/mg 10- [facility] Basophil percentageOrdered B y: Isaac Birch on 02-28-2025 Basophils/100 WBC (Bld) 0.6 % 0-1 [facility] Bilirubin, totalOrdered By: Isaac Birch on 02-28-2025 Bilirubin [Mass/Vol] 0.32 mg/dL 0.00-1.30 [facility] CBC W/Diff, Automatedon 02-08 Absolute Lymph 2.57 X10 3/uL Normal 0.83-4.51 [facility] Comment on above: Order Comment: Order Date: 02/28/25 Order Info: 0184-1 - CBCD Performed By: #### L 501.9970, L500.4050, L100.0100 #### [facility] [address] [place], [place] [address]all [facility] [place], [address] Absolute Neut 5.0 X10 3/uL Normal 2.0-7.7 [facility] Comment on above: Order Comment: Order Date: 02/28/25 Order Info: 0184-1 - CBCD Performed By: #### L 501.9985, L500.4050, L100.0100 #### [facility] [address] [place], [address] Basophils/100 WBC (Bld) 0.6 % Normal 0-1 [facility] Comment on above: Order Comment: Order Date: 02/28/25 Order Info: 0184-1 - CBCD Performed By: #### L 501.9985, L500.4050, L100.0100 #### [facility] [address] [place], [address] Eosinophils/100 WBC (Bld) 2.6 % Normal 0-5 [facility] Comment on above: Order Comment: Order Date: 02/28/25 Order Info: 0184-1 - CBCD Performed By: #### L 501.9985, L500.4050, L100.0100 #### [facility] [address] [place], [address] Erythrocyte distribution width (RBC) [Ratio] 14.1 % Normal 11.6-14.6 [facility] Comment on above: Order Comment: Order Date: 02/28/25 Order Info: 0184-1 - CBCD Performed By: #### L 501.9985, L500.4050, L100.0100 #### [facility] [address] [place], [address] Hematocrit (Bld) [Volume fraction] 44.7 % Normal 40-54 [facility] Comment on above: Order Comment: Order Date: 02/28/25 Order Info: 0184-1 - CBCD Performed By: #### L 501.9985, L500.4050, L100.0100 #### [facility] [address] [place], [address] Hemoglobin (Bld) [Mass/Vol] 15.1 g/dL Normal 13.0-16.5 [facility] Comment on above: Order Comment: Order Date: 02/28/25 Order Info: 0184- - CBCD Performed By: #### L 501.9985, L500.4050, L100.0100 #### [facility] [address] [place], [address] IG% 0.300 Normal 0.0-0.9 [facility] Comment on above: Order Comment: Order Date: 02/28/25 Order Info: 0184- - CBCD Result Comment: IG% - Immature Granulocytes (promyelocytes, myelocytes and metamyelocytes) > 1% indicates that a LEFT SHIFT is Present. Performed By: #### L 501.9985, L500.4050, L100.0100 #### [facility] [address] [place], [address] Lymphocytes/100 WBC (Bld) 29.6 % Normal 19-41 [facility] Comment on above: Order Comment: Order Date: 02/28/25 Order Info: 0184- - CBCD Performed By: #### L 501.9985, L500.4050, L100.0100 #### [facility] [address] [place], [address] MCH (RBC) [Entitic mass] 30.4 pg Normal 27.0-32.0 [facility] Comment on above: Order Comment: Order Date: 02/28/25 Order Info: 0184- - CBCD Performed By: #### L 501.9985, L500.4050, L100.0100 #### [facility] [address] [place], [address] MCHC (RBC) [Mass/Vol] 33.8 g/dL Normal 32-36 [facility] Comment on above: Order Comment: Order Date: 02/28/25 Order Info: 0184- - CBCD Performed By: #### L 501.9985, L500.4050, L100.0100 #### [facility] [address] [place], [address] MCV (RBC) [Entitic vol] 89.9 fL Normal 80-94 [facility] Comment on above: Order Comment: Order Date: 02/28/25 Order Info: 0184-1 - CBCD Performed By: #### L 501.9985, L500.4050, L100.0100 #### [facility] [address] [place], [address] Monocytes/100 WBC (Bld) 8.9 % Normal 0-10 [facility] Comment on above: Order Comment: Order Date: 02/28/25 Order Info: 0184-1 - CBCD Performed By: #### L 501.9985, L500.4050, L100.0100 #### [facility] [address] [place], [address] Neutrophils/100 WBC (Bld) 58.0 % Normal 47-70 [facility] Comment on above: Order Comment: Order Date: 02/28/25 Order Info: 0184-1 - CBCD Performed By: #### L 501.9985, L500.4050, L100.0100 #### [facility] [address] [place], [address] Nucleated RBC (Bld) [#/Vol] 0 10*3/uL Normal 0-5 [facility] Comment on above: Order Comment: Order Date: 02/28/25 Order Info: 0184-1 - CBCD Performed By: #### L 501.9985, L500.4050, L100.0100 #### [facility] [address] [place], [address] Platelet mean volume (Bld) [Entitic vol] 10.8 fL Normal 6.2-12.0 [facility] Comment on above: Order Comment: Order Date: 02/28/25 Order Info: 0184-1 - CBCD Performed By: #### L 501.9985, L500.4050, L100.0100 #### [facility] [address] [place], [address] Platelets (Bld) [#/Vol] 246 10*3/uL Normal 150-450 [facility] Comment on above: Order Comment: Order Date: 02/28/25 Order Info: 0184-1 - CBCD Performed By: #### L 501.9985, L500.4050, L100.0100 #### [facility] [address] [place], [address] RBC (Bld) [#/Vol] 4.97 10*6/uL Normal 4.6-6.2 [facility] Comment on above: Order Comment: Order Date: 02/28/25 Order Info: 0184- - CBCD Performed By: #### L 501.9985, L500.4050, L100.0100 #### [facility] [address] [place], [address] RDW SD 46.3 fl High 35.1-43.9 [facility] Comment on above: Order Comment: Order Date: 02/28/25 Order Info: 0184-1 - CBCD Performed By: #### L 501.9985, L500.4050, L100.0100 #### [facility] [address] [place], [address] WBC (Bld) [#/Vol] 8.7 10*3/uL Normal 4.4-11.0 [facility] Comment on above: Order Comment: Order Date: 02/28/25 Order Info: 0184-1 - CBCD Performed By: #### L 501.9985, L500.4050, L100.0100 #### [facility] [address] [place], [address] Carbon dioxide, total [Moles /volume] in Central venous bloodOrdered By: Isaac Birch on 02-28-2025 CO2 [Moles/Vol] 21.3 mmol/L 21.0-32.0 [facility] Chloride assayOrdered By: Rabia Birch on 02-28-2025 Chloride [Moles/Vol] 105 mmol/L 98-108 [facility] Comprehensive Metabolic Prof ilon 02-28-2025 Albumin [Mass/Vol] 4.1 g/dL Normal 3.5-5.0 [facility] Comment on above: Order Comment: Order Date: 02/28/25 Order Info: 0786-1 - CMP Performed By: #### L 501.9985, L500.4050, L100.0100 #### [facility] [address] [place], [address] Albumin/Globulin [Mass ratio] 1.3 {ratio} Normal 0.9-2.4 [facility] Comment on above: Order Comment: Order Date: 02/28/25 Order Info: 0786-1 - CMP Performed By: #### L 501.9985, L500.4050, L100.0100 #### [facility] [address] [place], [address] ALK PHOS 125 U/L Normal 40-129 [facility] Comment on above: Order Comment: Order Date: 02/28/25 Order Info: 0786-1 - CMP Performed By: #### L 501.9985, L500.4050, L100.0100 #### [facility] [address] [place], [address] ALT [Catalytic activity/Vol] 37 U/L Normal <=46 [facility] Comment on above: Order Comment: Order Date: 02/28/25 Order Info: 0786-1 - CMP Performed By: #### L 501.9985, L500.4050, L100.0100 #### [facility] [address] [place], [address] AST [Catalytic activity/Vol] 27 U/L Normal <=37 [facility] Comment on above: Order Comment: Order Date: 02/28/25 Order Info: 0786-1 - CMP Performed By: #### L 501.9985, L500.4050, L100.0100 #### [facility] [address] [place], [address] Bilirubin [Mass/Vol] 0.32 mg/dL Normal 0.00-1.30 [facility] Comment on above: Order Comment: Order Date: 02/28/25 Order Info: 0786-1 - CMP Performed By: #### L 501.9985, L500.4050, L100.0100 #### [facility] [address] [place], [address] BUN/CRE 16.1 RATIO Normal 10-20 [facility] Comment on above: Order Comment: Order Date: 02/28/25 Order Info: 0786-1 - CMP Performed By: #### L 501.9985, L500.4050, L100.0100 #### [facility] [address] [place], [address] Calcium [Mass/Vol] 9.4 mg/dL Normal 7.6-11.0 [facility] Comment on above: Order Comment: Order Date: 02/28/25 Order Info: 0786-1 - CMP Performed By: #### L 501.9985, L500.4050, L100.0100 #### [facility] [address] [place], [address] Chloride [Moles/Vol] 105 mmol/L Normal 98-108 [facility] Comment on above: Order Comment: Order Date: 02/28/25 Order Info: 0786-1 - CMP Performed By: #### L 501.9985, L500.4050, L100.0100 #### [facility] [address] [place], [address] CO2 [Moles/Vol] 21.3 mmol/L Normal 21.0-32.0 [facility] Comment on above: Order Comment: Order Date: 02/28/25 Order Info: 0786-1 - CMP Performed By: #### L 501.9985, L500.4050, L100.0100 #### [facility] [address] [place], [address] Creatinine [Mass/Vol] 1.02 mg/dL Normal 0.70-1.20 [facility] Comment on above: Order Comment: Order Date: 02/28/25 Order Info: 0786-1 - CMP Performed By: #### L 501.9985, L500.4050, L100.0100 #### [facility] [address] [place], [address] GAP 12 Normal 5-15 [facility] Comment on above: Order Comment: Order Date: 02/28/25 Order Info: 0786-1 - CMP Performed By: #### L 501.9985, L500.4050, L100.0100 #### [facility] [address] [place], [address] GFR/1.73 sq M.predicted among non-blacks MDRD (S/P/Bld) [Vol rate/Area] 86 mL/min/{1.73_m2} Normal >60 [facility] Comment on above: Order Comment: Order Date: 02/28/25 Order Info: 0786-1 - CMP Result Comment: mL/m in/1.73m2 CKD-EPI Creatinine Equation (2020) Performed By: #### L 501.9985, L500.4050, L100.0100 #### [facility] [address] [place], [address] Globulin (S) [Mass/Vol] 3.1 g/dL Normal 2.2-4.2 [facility] Comment on above: Order Comment: Order Date: 02/28/25 Order Info: 0786-1 - CMP Performed By: #### L 501.9985, L500.4050, L100.0100 #### [facility] [address] [place], [address] Glucose [Mass/Vol] 104 mg/dL High 70-99 [facility] Comment on above: Order Comment: Order Date: 02/28/25 Order Info: 0786-1 - CMP Performed By: #### L 501.9985, L500.4050, L100.0100 #### [facility] [address] [place], [address] Potassium [Moles/Vol] 4.0 mmol/L Normal 3.3-5.1 [facility] Comment on above: Order Comment: Order Date: 02/28/25 Order Info: 0786-1 - CMP Performed By: #### L 501.9985, L500.4050, L100.0100 #### [facility] [address] [place], [address] Sodium [Moles/Vol] 138 mmol/L Normal 133-145 [facility] Comment on above: Order Comment: Order Date: 02/28/25 Order Info: 0786-1 - CMP Performed By: #### L 501.9985, L500.4050, L100.0100 #### [facility] [address] [place], [address] T PROT 7.2 g/dL Normal 5.9-8.4 [facility] Comment on above: Order Comment: Order Date: 02/28/25 Order Info: 0786-1 - CMP Performed By: #### L 501.9985, L500.4050, L100.0100 #### [facility] [address] [place], [address] Urea nitrogen [Mass/Vol] 16 mg/dL Normal 4-19 [facility] Comment on above: Order Comment: Order Date: 02/28/25 Order Info: 0786-1 - CMP Performed By: #### L 501.9985, L500.4050, L100.0100 #### [facility] [address] [place], [place], [address] Eosinophil percentageOrdered By: Isaac Birch on 02-28-2025 Eosinophils/100 WBC (Bld) 2.6 % 0-5 [facility] Erythrocyte distribution wid th (RBC) [Ratio]Ordered By: Isaac Birch on 02-28-2025 Erythrocyte distribution width (RBC) [Entitic vol] 46.3 fL High 35.1-43.9 [facility] Erythrocyte distribution wid th ratioOrdered By: Isaac Birch on 02-28-2025 Erythrocyte distribution width (RBC) [Ratio] 14.1 % 11.6-14.6 [facility] GFR/1.73 sq M.predicted annette g non-blacks MDRD (S/P/Bld) [Vol rate/Area]Ordered By: Isaac Birch on 02-28-2025 Estimated GFR (MDRD) Non-Af Amer 86 >60 [facility] Comment on above: mL/min/1.73m2 CKD-EP I Creatinine Equation (2020) Hematocrit Auto (Bld) [Volum e fraction]Ordered By: Isaac Birch on 02-28-2025 Hematocrit (Bld) [Volume fraction] 44.7 % 40-54 [facility] Hemoglobin A1con 02-28-2025 HbA1c (Bld) [Mass fraction] 6.2 % High <=5.6 [facility] Comment on above: Order Comment: Order Date: 02/28/25 Order Info: 4548-4 - A1C Result Comment: Norm al < 5.7 % Prediabetic 5.7 - 6.4 % Diabetic >or= 6.5 % Please note range changes. Performed By: #### L 501.9985, L500.4050, L100.0100 #### [facility] [address] [place], [address] Hemoglobin A1c percentageOrd ered By: Isaac Birch on 02-28-2025 HbA1c (Bld) [Mass fraction] 6.2 % High <5.7 [facility] Comment on above: Normal < 5.7 % Predi abetic 5.7 - 6.4 % Diabetic >or= 6.5 % Please note range changes. Hemoglobin measurementOrdere d By: Isaac Birch on 02-28-2025 Hemoglobin (Bld) [Mass/Vol] 15.1 g/dL 13.0-16.5 [facility] Immature granulocytes/100 WB C Auto (Bld)Ordered By: Isaac Birch on 02-28-2025 Immature granulocytes/100 WBC (Bld) 0.300 % 0.0-0.9 [facility] Comment on above: IG% - Immature Granu locytes (promyelocytes, myelocytes and metamyelocytes) > 1% indicates that a LEFT SHIFT is Present. Laboratory - Chemistry and C hemistry - challengeOrdered By: Isaac Birch on 02-28-2025 AST [Catalytic activity/Vol] 27 U/L <38 [facility] Lymphocytes Auto (Unsp spec) [#/Vol]Ordered By: Isaac Birch on 02-28-2025 Lymphocytes (Bld) [#/Vol] 2.57 10*3/uL 0.83-4.51 [facility] Lymphocytes/100 WBC Auto (Un sp spec)Ordered By: Isaac Birch on 02-28-2025 Lymphocytes/100 WBC (Bld) 29.6 % 19-41 [facility] MCV (mean corpuscular volume ) determinationOrdered By: Isaac Birch on 02-28-2025 MCV (RBC) [Entitic vol] 89.9 fL 80-94 [facility] Mean corpuscular hemoglobin (MCH) determinationOrdered By: Isaac Birch on 02-28-2025 MCH (RBC) [Entitic mass] 30.4 pg 27.0-32.0 [facility] Mean corpuscular hemoglobin concentration (MCHC) determinationOrdered By: Isaac Birch on 02-28-2025 MCHC (RBC) [Mass/Vol] 33.8 g/dL 32-36 [facility] Mean platelet volume determi nationOrdered By: Isaac Birch on 02-28-2025 Platelet mean volume (Bld) [Entitic vol] 10.8 fL 6.2-12.0 [facility] Monocyte percentageOrdered B y: Isaac Birch on 02-28-2025 Monocytes/100 WBC (Bld) 8.9 % 0-10 [facility] Neutrophil percentageOrdered By: Isaac Birch on 02-28-2025 Neutrophils/100 WBC (Bld) 58.0 % 47-70 [facility] Nucleated red blood cell per centageOrdered By: Isaac Birch on 02-28-2025 Nucleated RBC/100 WBC (Bld) [Ratio] 0 % 0-5 [facility] Platelet countOrdered By: Rabia Birch on 02-28-2025 Platelets (Bld) [#/Vol] 246 10*3/uL 150-450 [facility] Potassium (Unsp spec) [Mass/ Vol]Ordered By: Isaac Birch on 02-28-2025 Potassium [Moles/Vol] 4.0 mmol/L 3.3-5.1 [facility] RBC Auto (Bld) [#/Vol]Ordere d By: Isaac Birch on 02-28-2025 RBC (Bld) [#/Vol] 4.97 10*6/uL 4.6-6.2 [facility] Serum creatinine measurement (mass/volume)Ordered By: Isaac Birch on 02-28-2025 Creatinine [Mass/Vol] 1.02 mg/dL 0.70-1.20 [facility] Serum globulin measurementOr dered By: Isaac Birch on 02-28-2025 Globulin (S) [Mass/Vol] 3.1 g/dL 2.2-4.2 [facility] Serum glucose measurement (m ass/volume)Ordered By: Isaac Birch on 02-28-2025 Glucose [Mass/Vol] 104 mg/dL High 70-99 [facility] Serum or plasma alanine marin otransferase (ALT) measurementOrdered By: Isaac Birch on 02-28-2025 ALT [Catalytic activity/Vol] 37 U/L <47 [facility] Serum or plasma albumin lukasz urement (mass/volume)Ordered By: Isaac Birch on 02-28-2025 Albumin [Mass/Vol] 4.1 g/dL 3.5-5.0 [facility] Serum or plasma albumin/glob ulin mass ratioOrdered By: Isaac Birch on 02-28-2025 Albumin/Globulin [Mass ratio] 1.3 {ratio} 0.9-2.4 [facility] Serum or plasma alkaline ayesha sphatase measurementOrdered By: Isaac Birch on 02-28-2025 ALP [Catalytic activity/Vol] 125 U/L 40-129 [facility] Serum or plasma calcium lukasz urement (mass/volume)Ordered By: Isaac Birch on 02-28-2025 Calcium [Mass/Vol] 9.4 mg/dL 7.6-11.0 [facility] Serum or plasma urea nitroge n measurement (mass/volume)Ordered By: Isaac Birch on 02-28-2025 Urea nitrogen [Mass/Vol] 16 mg/dL 4-19 [facility] Sodium levelOrdered By: Isaac Birch on 02-28-2025 Sodium [Moles/Vol] 138 mmol/L 133-145 [facility] Total proteinOrdered By: Amari Birch on 02-28-2025 Protein [Mass/Vol] 7.2 g/dL 5.9-8.4 [facility] White blood cell (WBC) count Ordered By: Isaac Birch on 02-28-2025 WBC (Bld) [#/Vol] 8.7 10*3/uL 4.4-11.0 [facility] Pelvis W/WO Contraston 11-28 Pelvis W/WO Contrast [facility] Services [address] [place] [address] [id number] Pelvis W/WO Contrast MR#: [id number] Acct: [id number] Name: YENY SUAZO Rep #: [id number] : 1965 M 58 From: Rodriguez ag MD PCP: Dr. Isaac Birch MD Status: [facility] Study: Pelvis W/WO Contrast Date of Exam: 11/28/24 Exam# [id number] Ordering Dr: Ramírez Ndiaye MD [id number] EXAMINATION: MR Prostate WO/W Contrast COMPARISON: 08/26/2022 CLINICAL HISTORY: 58-year-old male with elevated PSA Most recent PSA = 8.44 ng/ml; PSA date = 10/2024 TECHNIQUE: Standard prostate MR protocol was used before and after administration of 22 cc of IV Clariscan. FINDINGS: Prostate volume: 57 cc PSA density: 0.15 ng/ml2 Length of membranous urethra: 17 mm Post-biopsy hemorrhage: None Multiparametric MR evaluation: Heterogeneous appearance of the central gland is consistent with benign prostatic hyperplasia. No suspicious T2 hypointense or diffusion restricting lesion. Capsular margin and neurovascular bundle: Normal Seminal vesicles: Normal Lymph nodes: No lymphadenopathy in the field of view. Bones: No suspicious lesions in the field of view. MRI/Pelvis W/WO Contrast IMPRESSION: Limited examination due to motion artifact on T2 axial small FOV sequence. Despite limitations: PI-RADS 2: Benign prostatic hyperplasia. No suspicious T2 hypointense or diffusion restricting lesion. Electronically Signed: Rodriguez Giles MD at 10:41 EST , CC: Dr. Isaac Birch MD; Dr. Ramírez Ndiaye MD Resident Care Spec: Signed Normal [facility] PSA,Total- Diagnostic10-09 PSA, DIAGNOSTIC 8.44 ng/mL High 0.0-4.0 [facility] Comment on above: Result Comment: This test was performed using the TPSA assay method for the [employer] chemistry system. Values obtained with different assay methods cannot be used interchangably. When changing PSA assays in the course of monitoring a patient, additional sequential testing should be carried out to confirm baseline values. Performed By: #### L 501.9940 #### [facility] [address] [place], [place], [address] PT D/C Summary (1)on 024 PT D/C Summary (1) [facility] Physical Therapy [facility] [address] [place] [address]. [address] [place] [address] / REHABILITATION SERVICES DISCHARGE SUMMARY MR#: [id number] Acct: [id number] Name: YENY SUAZO Rep #: [id number] : 1965 58 From: Jacob Castillo PT, Cert. MD [place], OCS Referring Dr.: Dr. Isaac Birch MD Status: REG RCR Insurance: [employer] S[employer]URANCE Discharge Summary D/C summary: It has been my pleasure to treat YENY SUAZO referred by Dr. Isaac Birch MD, with the diagnosis of RIGHT KNEE PAIN ,PATELLOFEMORAL PAIN/CREPITUS for a total of 9 visit(s). Discharge Date: 09/20/24 Please see the following information for a summary of their discharge status. Subjective Subjective: Doing well Pain Right Knee: Pain Intensity (Out of 10): 0 Overall Improvement % Improvement: 100 Objective Objective/Function: Objective: POSTURE: mild forward posture ,patella slightly lateral tilted GAIT: reciprocal pattern PALPATION: unremarkable NEURO: intact EDEMA: absent AROM: 0-130 degrees right ,left 0-135 degrees knee flexion MMT: quads/hams/hip flexion/abduction 4/5 ,ankle 5/5 Goals Goal 1:: Patient to be I with HEP knee Goal Progress: Goal Met Goal 2:: Patient to improve AROM knee flexion by 5-10 degrees to improve stairs and elevation from chair Goal Progress: Goal Met Goal 3:: Patient to demonstrate 60% improvement with less pain improve function especially elevation from chair. Goal Progress: Goal Met Goal 4:: Patient to improve LFES score by 5 points to improve function Goal Progress: Goal Met Plan Plan: D/C D/C Information Discharge Comments: HEP d/c sentence: If there are questions or concerns regarding this patient's physical therapy, please feel free to call me at [phone]. Thank you for the referral of this patient. Sincerely, Jacob Castillo, PT, Cert MDT, OCS Balance/Gait/Functional tests Balance/Special Test Scores Lower Extremity Functional Score: 80 Improvement % Improvement: 100 09/20/24 0818 CC: Dr. Isaac Birch MD ESTEFANITran Signed Normal [facility] Inital Evaluation (1) - PTon 08-04-2024 Inital Evaluation (1) - PT [facility] Physical Therapy [facility] [address] [place] [address] [address] [place] [address] / REHABILITATION SERVICES INITIAL EVALUATION MR#: [id number] Acct: [id number] Name: YENY SUAZO Rep #: [id number] : 1965 58 From: Joaquim Ham PT. T, OCS Referring Dr.: Dr. Isaac Birch MD Status: REG RCR Insurance: [employer] SELF PAY INSURANCE Patient's Visit Information Visit Information Visit Information: YENY SUAZO is a 58 year old M referred to Physical Therapy by Dr. Isaac Birch MD with a diagnosis of RIGHT KNEE PAIN ,PATELLOFEMORAL PAIN/CREPITUS. Date of Evaluation: 08/04/24 Physical Therapist: Jacob Castillo PT, Joaquim JOLLY, OCS Visit Plan Frequency: 2x /Week Duration: 4 Weeks Plan: PT INTERVENTIONS ROM/FLEXABILITY KNEE QUADS/HAMS ,STRENGTHENING QUADS/HAMS/HIP AND FUNCTIONAL STRENGTHENING Subjective Subjective: This 58 y/o male presents to physical therapy with right knee pain. Patient developed knee pain since May 2024 with insidious onset no injury. Patient developed pain more sitting to get up . Patient pain described medial knee occasionally knee pain. Seen DR x-rays showed DDD. Prescribed osteoarthritis. Aggravating elevating from chair ,stairs . Alleviating with rest. Denies paresthesia/tingling. No trauma or injury . Patient sleeping good. Patient pain affects QOL and function. Patient goals to decrease pain. VOCATION: Accounting SOCIAL: Pain Right Knee: Pain Intensity (Out of 10): 2 Pain Intensity Range: 10 Objective Objective: POSTURE: mild forward posture ,patella slightly lateral tilted GAIT: reciprocal pattern PALPATION: unremarkable NEURO: intact EDEMA: absent AROM: 0-125 degrees right ,left 0-135 degrees knee flexion MMT: quads/hams/hip flexion/abduction 4/5 ,ankle 5/5 Special Tests R Knee Martin - Meniscus: Negative R Knee Posterior Drawer - PCL: Negative R Knee Valgus - MCL: Negative R Knee Varus - LCL: Negative R Knee Patellar Apprehension - PFS: Negative R Knee Patellar Grind - PFS: Negative Balance/Special Test Scores Lower Extremity Functional Score: 51 Goals Goal 1:: Patient to be I with HEP knee Goal Time Frame: 4-6 Weeks Goal 2:: Patient to improve AROM knee flexion by 5-10 degrees to improve stairs and elevation from chair Goal Time Frame: 4-6 Weeks Goal 3:: Patient to demonstrate 60% improvement with less pain improve function especially elevation from chair. Goal Time Frame: 4-6 Weeks Goal 4:: Patient to improve LFES score by 5 points to improve function Goal Time Frame: 4-6 Weeks Rehabilitation Potential Physical Therapy Diagnosis: Patient has right knee pain with patellofemoral pain with decreased ROM and functional activities thus benefit from skilled PT Rehabilitation Potential: Good Anticipated Interventions Patient/Client Instruction: Educate patient on: Condition and Plan of Care For the Purpose of:: To increase ROM, To improve muscle performance and motor function, To improve ability to perform ADL's, To increase tolerance to activity/condition/positi on, To improve ability of physical actions for home/community/work/leisu re, To improve health of tissue, To decrease soft tissue restriction, To increase flexibility/ROM and To improve tolerance to ADL's Therapeutic Exercise to Include: Strength training, Power training, Endurance training, Flexibilty training and Active ROM Comment: QUADS/HAMS/HIP For the Purpose of:: To decrease pain, To increase ROM, To improve muscle performance and motor function, To increase tolerance to activity/condition/positi on, To improve ability of physical actions for home/community/work/leisu re, To improve health of tissue, To decrease soft tissue restriction and To increase flexibility/ROM Text: Thank you for the opportunity to evaluate your patient. For Medicare and Medicare HMO plans, please review the plan of care and approve it. It will need to be FAXED BACK to us at [phone] for Medicare purposes. For Medicare only, by signing this I certify the plan of care. Please let me know if there are questions or concerns regarding this plan of care. Physician Signature: Date: _ 08/04/24 1857 CC: Dr. Isaac Birch MD KEISHA Signed Normal [facility] Knee 4 or More Viewson 07-26 Knee 4 or More Views [facility] Imaging Services [address] [place] [address] Knee 4 or More Views MR#: [id number] Acct: [id number] Name: YENY SUAZO Rep #: [id number] : 1965 M 58 From: Rogelio Church MD PCP: Dr. Isaac Birch MD Status: REG CLI Study: Knee 4 or More Views Date of Exam: 07/26/24 Exam# [id number] Ordering Dr: Isaac Birch MD [id number] STUDY: X-RAY - RIGHT KNEE REASON FOR EXAM: Male, 58 years old. Knee pain. TECHNIQUE: 4 views of the right knee. COMPARISON: None. FINDINGS: Normal visualized distal femur. Normal visualized proximal tibia and fibula. Normal proximal tibiofibular articulation. There is no demonstrated fracture. Normal medial femorotibial compartment. Normal lateral femorotibial compartment. Normal patellofemoral articulation. There is a small enthesopathic spur of the superior pole of the patella at the distal insertion of the quadriceps tendon. There is a tiny joint effusion. The soft tissue structures are unremarkable. RAD/Knee 4 or More Views IMPRESSION: Small enthesopathic spur of the superior pole of the patella at the distal insertion of the quadriceps tendon. Tiny joint effusion. Electronically Signed: Rogelio Church MD at 15:29 EDT Reading Location ID and State: [facility] / [place] , Service support , CC: Dr. Isaac Birch MD Resident Care Spec: Signed Normal [facility] Knee 4 or More Views [facility] Imaging Services [address] [place] [address] Knee 4 or More Views MR#: [id number] Acct: [id number] Name: YENY SUAZO Rep #: [id number] : 1965 M 58 From: Rogelio Church MD PCP: Dr. Isaac Birch MD Status: REG CLI Study: Knee 4 or More Views Date of Exam: 07/26/24 Exam# [id number] Ordering Dr: Isaac Birch MD [id number] STUDY: X-RAY - LEFT KNEE REASON FOR EXAM: Male, 58 years old. PAIN TECHNIQUE: 4 views of the left knee. COMPARISON: None. FINDINGS: Normal visualized distal femur. Normal visualized proximal tibia and fibula. Normal proximal tibiofibular articulation. There is no demonstrated fracture. Normal medial femorotibial compartment. Normal lateral femorotibial compartment. Normal patellofemoral articulation. There is a tiny enthesopathic spur of the superior pole of the patella at the distal insertion of the quadriceps tendon. There is no significant joint effusion. The soft tissue structures are unremarkable. RAD/Knee 4 or More Views IMPRESSION: Tiny enthesopathic spur of the superior pole of the patella at the distal insertion of the quadriceps tendon. Electronically Signed: Rogelio Church MD at 15:30 EDT Reading Location ID and State: [facility] / [place] , Service support , CC: Dr. Isaac Birch MD Resident Care Spec: Signed Normal [facility] Absolute lymphocyte countOrd ered By: Isaac Birch on 02-25-2024 Lymphocytes Auto (Unsp spec) [#/Vol] 2.30 10*3/uL 0.83-4.51 [facility] Automated lymphocyte count a s percentage of total leukocytesOrdered By: Isaac Birch on 02-25-2024 Lymphocytes/100 WBC Auto (Unsp spec) 31.8 % 19-41 [facility] Basophil percentageOrdered B y: Isaac Birch on 02-25-2024 Basophils/100 WBC (Bld) 0.8 % 0-1 [facility] Bilirubin [Mass/Vol] 0.40 mg/dL 0.20-1.00 [facility] Comment on above: For patients on eltr ombopag therapy, use of Dimension [place] TBIL is not recommended. Chloride [Moles/Vol] 110 mmol/L 98-107 [facility] Cholesterol [Mass/Vol] 196 mg/dL <200 [facility] Comment on above: <200 mg/dL Desirable 200-240 mg/dL Borderline >240 mg/dL High Risk Eosinophils/100 WBC (Bld) 5.5 % 0-5 [facility] Glucose [Mass/Vol] 106 mg/dL 74-106 [facility] Comment on above: Fasting Glucose resu lt from 100 to 125 mg/dL suggests IMPAIRED HOMEOSTASIS per A.D.A. criteria. Hemoglobin (Bld) [Mass/Vol] 14.7 g/dL 13.0-16.5 [facility] Monocytes/100 WBC (Bld) 8.8 % 0-10 [facility] Neutrophils (Bld) [#/Vol] 3.8 10*3/uL 2.0-7.7 [facility] Neutrophils/100 WBC (Bld) 52.8 % 47-70 [facility] Potassium [Moles/Vol] 3.9 mmol/L 3.5-5.1 [facility] Protein [Mass/Vol] 7.4 g/dL 6.4-8.2 [facility] Sodium [Moles/Vol] 139 mmol/L 136-145 [facility] Triglyceride [Mass/Vol] 182 mg/dL <199 [facility] Comment on above: The drugs N-Acetylcy steine and Metamizole may falsely depress this assay.Serum Triglycerides Reference Interval Normal <150 mg/dL Borderline high 150 - 199 mg/dL High 200 - 499 mg/dL Very High > or = 500 mg/dL WBC (Bld) [#/Vol] 7.2 10*3/uL 4.4-11.0 [facility] Determination of erythrocyte mean corpuscular volume (MCV)Ordered By: Isaac Birch on 02-25-2024 MCV (RBC) [Entitic vol] 91.3 fL 80-94 [facility] Erythrocyte distribution wid th ratioOrdered By: Isaac Birch on 02-25-2024 Erythrocyte distribution width (RBC) [Ratio] 14.2 % 11.6-14.6 [facility] Erythrocyte distribution wid th standard deviationOrdered By: Isaac Birch on 02-25-2024 Erythrocyte distribution width (RBC) [Entitic vol] 47.9 fL 35.1-43.9 [facility] Hematocrit Auto (Bld) [Volum e fraction]Ordered By: Isaac Birch on 02-25-2024 Hematocrit (Bld) [Volume fraction] 44.3 % 40-54 [facility] Immature granulocytes/100 WB C Auto (Bld)Ordered By: Isaac Birch on 02-25-2024 Immature granulocytes/100 WBC (Bld) 0.300 % 0.0-0.9 [facility] Comment on above: IG% - Immature Granu locytes (promyelocytes, myelocytes and metamyelocytes) > 1% indicates that a LEFT SHIFT is Present. Laboratory - Chemistry and C hemistry - challengeOrdered By: Isaac Birch on 02-25-2024 Albumin/Globulin [Mass ratio] 0.9 {ratio} 0.9-2.4 [facility] ALP [Catalytic activity/Vol] 115 U/L 45-117 [facility] ALT [Catalytic activity/Vol] 54 U/L 16-61 [facility] Cholesterol in HDL [Mass/Vol] 37 mg/dL >40 [facility] Comment on above: The drugs N-Acetylcy steine and Metamizole may falsely depress this assay. Reference Range HDL <40 mg/dL Low HDL Cholesterol HDL >or= 60 mg/dL High HDL Cholesterol Cholesterol in LDL [Mass/Vol] 123 mg/dL 0-130 [facility] CO2 [Moles/Vol] 24.0 mmol/L 21.0-32.0 [facility] Globulin (S) [Mass/Vol] 3.8 g/dL 2.2-4.2 [facility] Urea nitrogen/Creatinine [Mass ratio] 24.6 mg/mg 10-20 [facility] Laboratory - Hematology and Cell countsOrdered By: Isaac Birch on 02-25-2024 MCH (RBC) [Entitic mass] 30.3 pg 27.0-32.0 [facility] MCHC (RBC) [Mass/Vol] 33.2 g/dL 32-36 [facility] Nucleated RBC/100 WBC (Bld) [Ratio] 0 % 0-5 [facility] Platelet mean volume (Bld) [Entitic vol] 10.8 fL 6.2-12.0 [facility] Platelets (Bld) [#/Vol] 229 10*3/uL 150-450 [facility] No Panel InformationOrdered By: Isaac Birch on 02-25-2024 Estimated GFR (MDRD) Amer 113 mL/min >60 [facility] Comment on above: GFR Calc Estimated GFR (MDRD) Non-Af Amer 93 mL/min >60 [facility] Comment on above: Non- GFR Calc Thyroglobulin Antibody < 1.0 IU/mL 0.0-0.9 [facility] Comment on above: Thyroglobulin Antibo dy measured by IpsumMethodologyIt should be noted that the presence of thyroglobulinantibodies may not be pathogenic nor diagnostic, especiallyat very low levels. The assay program advocate has found thatfour percent of individuals without evidence of thyroiddisease or autoimmunity will have positive TgAb levels upto 4 IU/mL. Thyroglobulin Level 21.2 ng/mL 1.4-29.2 [facility] Comment on above: According to the [facility] [employer],the reference interval for Thyroglobulin (TG) should berelated to euthyroid patients and not for patients whounderwent thyroidectomy. TG reference intervals for thesepatients depend on the residual mass of the thyroid tissueleft after surgery. Establishing a post-operative baselineis recommended. The assay limit of quantitation is 0.1ng/mLThyroglobulin measured by George [employer]ometricAss[employer] VLDL Cholesterol 36 mg/dL 5-40 [facility] RBC Auto (Bld) [#/Vol]Ordere d By: Isaac Birch on 02-25-2024 RBC (Bld) [#/Vol] 4.85 10*6/uL 4.6-6.2 [facility] Serum or plasma calcium lukasz urement (mass/volume)Ordered By: Isaac Birch on 02-25-2024 Calcium [Mass/Vol] 9.0 mg/dL 8.5-10.1 [facility] Serum or plasma creatinine m easurement (mass/volume)Ordered By: Isaac Birch on 02-25-2024 Creatinine [Mass/Vol] 0.90 mg/dL 0.70-1.30 [facility] Comment on above: The validity of the calculated GFR & GFRAA in patients over 70 years has not been determined. Clinical correlation is essential. Serum or plasma thyroid stim ulating hormone (TSH) measurement (units/volume)Ordered By: Isaac Birch on 02-25-2024 TSH Qn 2.24 uIU/mL 0.358-3.74 [facility] Serum or plasma thyroperoxid ase antibody assay (units/volume)Ordered By: Isaac Birch on 02-25-2024 TPO Ab Qn 13 [IU]/mL 0-34 [facility] Comment on above: Performed at: [address] Director: Martín Balderrama PhD, Phone: [phone] Serum or plasma urea nitroge n measurement (mass/volume)Ordered By: Isaac Birch on 02-25-2024 Urea nitrogen [Mass/Vol] 22 mg/dL 7-18 [facility] Thin prep Papanicolaou smear with manual screeningOrdered By: Isaac Birch on 02-25-2024 Thin prep Papanicolaou smear with manual screening 3.6 g/dL 3.2-5.0 [facility] Thin prep Papanicolaou smear with manual screening 26 U/L 15-37 [facility] Thin prep Papanicolaou smear with manual screening 5 5-15 [facility] Thin prep Papanicolaou smear with manual screening 1.07 ng/dL 0.76-1.46 [facility] Whole blood hemoglobin A1c/t otal hemoglobin ratio (mass fraction)Ordered By: Isaac Birch on 02-25-2024 HbA1c (Bld) [Mass fraction] 5.9 % 3.8-5.6 [facility] Comment on above: Normal < 5.7 % Predi abetic 5.7 - 6.4 % Diabetic >or= 6.5 % Please note range changes. No Panel InformationOrdered By: Ramírez Ndiaye on 10-19-2023 Prostate Specific Antigen Total 6.94 ng/mL 0.0-4.0 [facility] Comment on above: This test was perfor med using the TPSA assay method for theDimension chemistry system. Values obtained with differentassay methods cannot be used interchangably.When changing PSA assays in the course of monitoring apatient, additional sequential testing should be carriedout to confirm baseline values. No Panel InformationOrdered By: ZAFAR Solorzano on 04-17-2023 Prostate Specific Antigen Total 6.60 ng/mL 0.0-4.0 [facility] Comment on above: This test was perfor med using the TPSA assay method for theDimension chemistry system. Values obtained with differentassay methods cannot be used interchangably.When changing PSA assays in the course of monitoring apatient, additional sequential testing should be carriedout to confirm baseline values. No Panel Informationon 10-20 Prostate Specific Antigen Total 6.67 ng/mL 0.0-4.0 [facility] Work Phone: Comment on above: This test was perfor med using the TPSA assay method for theDimension chemistry system. Values obtained with differentassay methods cannot be used interchangably.When changing PSA assays in the course of monitoring apatient, additional sequential testing should be carriedout to confirm baseline values. No Panel Informationon 06-17 Prostate Specific Antigen Total 8.32 ng/mL 0.0-4.0 [facility] Work Phone: Comment on above: This test was perfor med using the TPSA assay method for theDimension chemistry system. Values obtained with differentassay methods cannot be used interchangably.When changing PSA assays in the course of monitoring apatient, additional sequential testing should be carriedout to confirm baseline values. No Panel Informationon 05-01 Prostate Specific Antigen Screen 7.29 ng/mL 0.00-4.00 [facility] Work Phone: Comment on above: This test was perfor med using the TPSA assay method for theDimension chemistry system. Values obtained with differentassay methods cannot be used interchangably.When changing PSA assays in the course of monitoring apatient, additional sequential testing should be carriedout to confirm baseline values. Basophil percentageon 2021 Bilirubin [Mass/Vol] 0.60 mg/dL 0.20-1.00 [facility] Work Phone: Comment on above: For patients on eltr ombopag therapy, use of Dimension [place] TBIL is not recommended. Chloride [Moles/Vol] 106 mmol/L 98-107 [facility] Work Phone: Cholesterol [Mass/Vol] 169 mg/dL <200 [facility] Work Phone: Comment on above: <200 mg/dL Desirable 200-240 mg/dL Borderline >240 mg/dL High Risk Glucose [Mass/Vol] 89 mg/dL 74-106 [facility] Work Phone: Potassium [Moles/Vol] 3.7 mmol/L 3.5-5.1 [facility] Work Phone: Protein [Mass/Vol] 7.4 g/dL 6.4-8.2 [facility] Work Phone: Sodium [Moles/Vol] 138 mmol/L 136-145 [facility] Work Phone: WBC (Bld) [#/Vol] 7.4 10*3/uL 4.4-11.0 [facility] Work Phone: Blood erythrocytes count (nu mber/volume)on 01-21-2022 RBC (Bld) [#/Vol] 4.65 10*6/uL 4.6-6.2 [facility] Work Phone: Blood hemoglobin measurement (mass/volume)on 01-21-2022 Hemoglobin (Bld) [Mass/Vol] 13.9 g/dL 13.0-16.5 [facility] Work Phone: Blood platelet mean volumeon 01-21-2022 Platelet mean volume (Bld) [Entitic vol] 10.8 fL 6.2-12.0 [facility] Work Phone: Determination of erythrocyte mean corpuscular volume (MCV)on 01-21-2022 MCV (RBC) [Entitic vol] 92.5 fL 80-94 [facility] Work Phone: Hematocrit Auto (Bld) [Volum e fraction]on 01-21-2022 Hematocrit (Bld) [Volume fraction] 43.0 % 40-54 [facility] Work Phone: Laboratory - Chemistry and C hemistry - challengeon 01-21-2022 ALP [Catalytic activity/Vol] 107 U/L 45-117 [facility] Work Phone: ALT [Catalytic activity/Vol] 36 U/L 16-61 [facility] Work Phone: CO2 [Moles/Vol] 27.0 mmol/L 21.0-32.0 [facility] Work Phone: Globulin (S) [Mass/Vol] 3.6 g/dL 2.2-4.2 [facility] Work Phone: Natriuretic peptide B (Bld) [Mass/Vol] 46.1 pg/mL 0-100 [facility] Work Phone: Urea nitrogen/Creatinine [Mass ratio] 18.3 mg/mg 10-20 [facility] Work Phone: Laboratory - Hematology and Cell countson 01-21-2022 Erythrocyte distribution width (RBC) [Entitic vol] 48.2 fL 35.1-43.9 [facility] Work Phone: Erythrocyte distribution width (RBC) [Ratio] 14.2 % 11.6-14.6 [facility] Work Phone: MCH (RBC) [Entitic mass] 29.9 pg 27.0-32.0 [facility] Work Phone: MCHC Auto (RBC) [Mass/Vol]on 01-21-2022 MCHC (RBC) [Mass/Vol] 32.3 g/dL 32-36 [facility] Work Phone: No Panel Informationon 01-21 Estimated GFR (MDRD) Amer 102 mL/min >60 [facility] Work Phone: Comment on above: GFR Calc Estimated GFR (MDRD) Non-Af Amer 84 mL/min >60 [facility] Work Phone: Comment on above: Non- GFR Calc Platelets bldon 01-21-2022 Platelets (Bld) [#/Vol] 233 10*3/uL 150-450 [facility] Work Phone: Serum or plasma albumin lukasz urement (mass/volume)on 01-21-2022 Albumin [Mass/Vol] 3.8 g/dL 3.2-5.0 [facility] Work Phone: Serum or plasma albumin/glob ulin mass ratioon 01-21-2022 Albumin/Globulin [Mass ratio] 1.1 {ratio} 0.9-2.4 [facility] Work Phone: Serum or plasma calcium lukasz urement (mass/volume)on 01-21-2022 Calcium [Mass/Vol] 8.9 mg/dL 8.5-10.1 [facility] Work Phone: Serum or plasma cholesterol in HDL measurement (mass/volume)on 01-21-2022 Cholesterol in HDL [Mass/Vol] 47 mg/dL >40 [facility] Work Phone: Comment on above: The drugs N-Acetylcy steine and Metamizole may falsely depress this assay. Reference Range HDL <40 mg/dL Low HDL Cholesterol HDL >or= 60 mg/dL High HDL Cholesterol Serum or plasma creatinine m easurement (mass/volume)on 01-21-2022 Creatinine [Mass/Vol] 0.98 mg/dL 0.70-1.30 [facility] Work Phone: Comment on above: The validity of the calculated GFR & GFRAA in patients over 70 years has not been determined. Clinical correlation is essential. Serum or plasma urea nitroge n measurement (mass/volume)on 01-21-2022 Urea nitrogen [Mass/Vol] 18 mg/dL 7-18 [facility] Work Phone: Thin prep Papanicolaou smear with manual screeningon 01-21-2022 Thin prep Papanicolaou smear with manual screening 23 U/L 15-37 [facility] Work Phone: Thin prep Papanicolaou smear with manual screening 5 5-15 [facility] Work Phone: Vital Signs Date Time Vital Sign Value Performing Clinician Faci lity 09-17-2022 08:45-0500 Body temperature 97.1 [degF] Dr. Isaac Birch Work Phone: [facility] Work Phone: 09-17-2022 08:45-0500 Diastolic blood pressure 75 mm[Hg] Dr. Isaac Birch Work Phone: [facility] Work Phone: 09-17-2022 08:45-0500 Heart rate 65 /min Dr. Isaac Birch Work Phone: [facility] Work Phone: 09-17-2022 08:45-0500 Respiratory rate 16 /min Dr. Isaac Birch Work Phone: [facility] Work Phone: 09-17-2022 08:45-0500 SaO2% (BldA) [Mass fraction] 97 % Dr. Isaac Birch Work Phone: [facility] Work Phone: 09-17-2022 08:45-0500 Systolic blood pressure 100 mm[Hg] Dr. Isaac Birch Work Phone: [facility] Work Phone: 09-17-2022 07:08-0500 Body height 177.[address] Isaac Bicrh Work Phone: [facility] Work Phone: 09-17-2022 07:08-0500 Body mass index (BMI) [Ratio] 32.5 kg/m2 Dr. Isaac Birch Work Phone: [facility] Work Phone: 09-17-2022 07:08-0500 Body weight [address] Isaac Birch Work Phone: [facility] Work Phone: 08-01-2022 10:39-0400 Body height 175.[address] Isaac Birch Work Phone: [facility] Work Phone: 08-01-2022 10:39-0400 Body mass index (BMI) [Ratio] 34.7 kg/m2 Dr. Isaac Birch Work Phone: [facility] Work Phone: 08-01-2022 10:39-0400 Body weight 106.[address] Isaac Birch Work Phone: [facility] Work Phone: Encounters Encounter Date Encounter Type Care Provider Facility Start: 06-10-2025 ambulatory Tiny Boykin [facility] ty:[facility] Start: 02-28-2025 End: 02-28-[address] Isaac Birch MD Work Phone: [facility] Work Phone: Start: 02-28-2025 End: 02-28-[address] Isaac Birch MD -[facility], [facility] Start: 02-28-2025 End: 02-28-2025 ambulatory Isaac Birch Facility:[facility] Start: 11-28-2024 End: 11-28-[address] Ramírez Ndiaye MD -[facility] Work Phone: Start: 11-28-2024 End: 11-28-2024 ambulatory Ramírez Ndiaye Facility:[facility] Start: 10-21-2024 End: 10-21-2024 ambulatory Isaac Birch Facility:[facility] Start: 09-20-2024 End: 09-20-2024 ambulatory Isaac Birch Facility:[facility] Start: 07-26-2024 End: 07-26-2024 ambulatory Isaac Bicrh Facility:[facility] Start: 03-03-2024 End: 03-03-2024 ambulatory [facility] Work Phone: Start: 03-03-2024 End: 03-03-2024 Patient encounter procedure [facility], [facility] Work Phone: Start: 02-25-2024 End: 02-25-2024 ambulatory [facility] Work Phone: Start: 02-25-2024 End: 02-25-2024 Patient encounter procedure [facility], [place] Work Phone: Start: 10-19-2023 End: 10-19-2023 ambulatory [facility] Work Phone: Start: 10-19-2023 End: 10-19-2023 Patient encounter procedure [facility] Work Phone: Start: 04-17-2023 End: 04-17-2023 ambulatory [facility] Work Phone: Start: 04-17-2023 End: 04-17-2023 Patient encounter procedure [facility] Start: 10-20-2022 End: 10-20-[address] Isaac Birch Work Phone: [facility] Work Phone: Start: 10-20-2022 End: 10-20-[address] Isaac Birch Work Phone: [facility] Start: 09-17-2022 Non-patient / Non-visit Dr. Rabia Birch Work Phone: [facility] Start: 09-17-2022 End: 09-17-2022 Admission to same day surgery center Dr. Isaac Birch Work Phone: [facility] Start: 09-17-2022 End: 09-17-[address] Isaac Birch Work Phone: [facility] Work Phone: Start: 08-26-2022 End: 08-26-[address] Isaac Birch Work Phone: [facility] Work Phone: Start: 08-26-2022 End: 08-26-[address] Isaac Birch Work Phone: [facility] Start: 08-01-2022 Non-patient / Non-visit Dr. Rabia Birch Work Phone: [facility] Start: 06-26-2022 End: 06-26-2022 ambulatory [facility] Work Phone: Start: 06-26-2022 End: 06-26-2022 Patient encounter procedure [facility], Specimen Start: 06-17-2022 End: 06-17-2022 Patient encounter procedure [facility] Start: 05-01-2022 End: 05-01-2022 Patient encounter procedure [facility] Start: 02-13-2022 Registered [facility] Start: 02-05-2022 Registered [facility] Start: 01-21-2022 End: 01-21-2022 Patient encounter procedure [facility] Procedures Date Procedure Procedure Detail Performing Clinician Start: 11-28-2024 MRI of pelvis with contrast Dr. Isaac Birch MD Work Phone: Start: 03-03-2024 US scan of thyroid Start: 09-17-[address] Isaac rain Work Phone: Start: 08-26-2022 MRI of pelvis with contrast Dr. Isaac Birch Work Phone: Start: 01-21-2022 Plain chest X-ray Plan of Treatment Date Care Activity Detail Author Start: 09-17-2022 Colonoscopy flx dx w/collj spec when pfrmd DIAGNOSTIC COLONOSCOPY [facility] Work Phone: Start: 09-17-2022 Patient discharge [facility] Work Phone: Colonoscopy [facility] Work Phone: Patient referral [facility] Work Phone: Payers Date Payer Category Payer Self-pay [id number] 2006 Private Health Insurance [id number] Unknown [id number] [id number] Unknown [id number] [id number] Unknown [id number] [id number] Unknown [id number] [id number] Unknown [id number] 2.16.8 [id number] Unknown [id number] 2.16.8 [id number] Social History Date Type Detail [facility] Work Phone: Start: 1965 Sex Assigned At Male [facility] Start: 08-01-2022 End: 09-17-2022 Tobacco smoking status [facility] Unknown if ever smoked [facility] Start: 09-17-2022 [facility] (finding[facility] Start: 03-03-2025 Sex Male (finding) [facility] Goals Date Patient Goal Desired Activity /State Mental Status Date Assessment Result Facility 09-17-2022 Cognitive function Voice/Name [facility] Work Phone: Evaluation note Note Date & Type Note Facility Evaluation note No assessment information availa ble [facility] Work Phone: Evaluation note Note Date & Type Note Facility Evaluation note Diagnosis Onset Date Encounter for screening for malignant neoplasm of colon acute [facility] Work Phone: Reason for referral (narrative) Note Date & Type Note Facility Reason for referral (narrative) No reason for referral information available [facility] Work Phone: Chief Complaint and Reason for Visit Chief Complaint LEG SWELLING LYMPHEDEMA L LEG;PVD/VARICOSE VEINS KESHA/RX HERE Chief Complaint LEG SWELLING LYMPHEDEMA L LEG;PVD/VARICOSE VEINS KESHA/RX HERE E ORDER Chief Complaint E ORDER Chief Complaint Amb Documentation PROSTATE CA Chief Complaint Amb Documentation PROSTATE CA Reason for Visit Encounter for screen ing for malignant neoplasm of colon Chief Complaint EORDER NONTOXIC SINGLE THYROID NODULE Chief Complaint PSA Chief Complaint Admit Date PROSTATE CANCER, ELEVATED PSA November 282024 1:16pm Advance Directives No Advanced Directives Records Found Advance Directive Response Recorded Date/ Time Living Will No September 15 12:32pm Power of Change Management Director No September 15, 2022 12:32pm Advance Directive Response Recorded Date/ Time Living Will No September 15 1:32pm Power of Change Management Director No September 15, 2022 1:32pm Summary Purpose Family History No Family History Records Found Additional Source Comments Goals (unrecognized section and content) Goals may be documented in a n alternate sectionGoals may be documented in an alternate sectionGoals may be documented in an alternate sectionGoals may be documented in an alternate sectionGoals may be documented in an alternate sectionGoals may be documented in an alternate sectionGoals may be documented in an alternate sectionGoals may be documented in an alternate sectionGoals may be documented in an alternate sectionGoals may be documented in an alternate section Care Teams (unrecognized sec tion and content) Team Status: Active Member Role Status Dates Dr. Daryl Carroll MD Family Provider Active Dr. Isaac Birch MD Primary Care Provider Active Team Status: Inactive Member Role Status Dates Dr. Isaac Birch MD Primary Care Provider Active Mirlande Solorzano NP-C Attending Provider, Refersuzette g Provider Active Team Status: Inactive Member Role Status Dates Dr. Isaac Birch MD Primary Care Pr rehana, Attending Provider, Referring Provider Active Team Status: Active Member Role Status Dates Dr. Isaac Birch MD Primary Care Pr rehana, Attending Provider, Referring Provider Active Team Status: Inactive Member Role Status Dates Dr. Isaac Birch MD Primary Care Provider Active Dr. Ramírez Ndiaye MD Attending Provider, Referr ing Provider Active Tiny Boykin Other Provider Active Team Status: Inactive Member Role Status Dates Dr. Isaac Birch MD Primary Care Provider Active Start: November 28, 2024 End: November 28, 2024 Dr. Ramírez Ndiaye MD Attending Provider Active Start: November 28, 2024 End: November 28, 2024 Dr. Ramírez Ndiaye MD Referring Provider Active Start: November 28, 2024 End: November 28, 2024 Team Status: Inactive Member Role Status Dates Dr. Isaac Birch MD Primary Care Provider Active Start: February 28, 2025 End: February 28, 2025 Dr. Isaac Birch MD Attending Provider Active Start: February 28, 2025 End: February 28, 2025 Dr. Isaac Birch MD Referring Provider Active Start: February 28, 2025 End: February 28, 2025 (unrecognized sect ion and content) No Status Records Found INFORMATION SOURCE (unrecogn ized section and content) DATE CREATED AUTHOR 06/12/2025 [facility] FOR RECORDS PERTAINING TO PATIENTS WHO ARE OR HAVE BEEN ENROLLED IN A CHEMICAL DEPENDENCY/SUBSTANCEABUSE PROGRAM, SOME INFORMATION MAY BE OMITTED. This clinical summary was aggregated from multiple sources. Caution should be exercised in using it in the provision of clinical care. This summary normalizes information from multiple sources, and as a consequence, information in this document may materially change the coding, format and clinical context of patient data. In addition, data may be omitted in some cases. CLINICAL DECISIONS SHOULD BE BASED ON THE PRIMARY CLINICAL RECORDS. [employer] provides no warranty or guarantee of the accuracy or completeness of information in this document.
[2025-06-12 09:38] LABS: PSA,Total- Diagnostic 8.25 ng/mL (0.00-4.00)
== END | disposition home or self-care (01) ==
LOC: LAB 08:11
PROVIDERS: PCP Family Medicine; Referring Provider Nurse Practitioner; Visit Provider Nurse Practitioner
DX: C61 Malignant neoplasm of prostate (principal)
CPT/HCPCS: 36415; 84153